=== PATIENT | female | born 1980 | race Caucasian/White ===

== ENCOUNTER 2022-06-04 07:06 | Emergency (ER) | payer BC, SELFPAY ==
[2022-06-04 07:13] VITALS: BP 140/65; PULSE 97; RESP 20; TEMP 35.9; O2SAT 98; BMI 43.1
--- NOTE | 2022-06-04 07:33 | ED_ITS ---
HPI - Back Pain/Injury General Chief Complaint: Back Injury/Pain Stated Complaint: back pain, muscle spasms Time Seen by Provider: 06/04/22 07:21 Source: patient Mode of arrival: ambulatory Limitations: no limitations History of Present Illness HPI Narrative: 42-year-old female presents to the emergency department with back pain that started this morning. Achy in nature, worse with movement. Located in the left flank area does radiate up to the left shoulder slightly. It is not accompanied by dyspnea, productive cough, hemoptysis. There is no radiculopathy or numbness or tingling. She has had upper respiratory infection cough for the past 2 weeks. Has been evaluated in urgent care twice. Six days ago, she was given a Z-Timothy and prednisone yesterday. Reports that this did not significantly improve her symptoms. She says the congestion is improving overall, suspect she may have had RSV. The and cough persists. She states that last night, the cough was more bothersome and felt a muscle pull in the area of pain now. She tried taking some ibuprofen at 6:00 a.m. this morning and it has not significantly improved her pain. She denies any prior history of DVT nor PE. She denies any hematuria or history of kidney stones. She was able to drive herself here and walk into the exam room without assistance. She is not running any true fevers. She denies a history of asthma. No prior history of back surgery, no other recent trauma or injury. Has not tried ice or heat. Past medical history notable for hypertension, prediabetes, depression. Reports an allergy to lisinopril causing abdominal pain. She does take for home medications, metformin, labetalol, levothyroxine and sertraline. Socially she is a nonsmoker with no pertinent travel. Tells me that she works for the [employer]. ROS is notable for the generalized, respiratory, musculoskeletal and HEENT symptoms as described above. Otherwise she denies times 12 systems. Related Data Home Medications Medication Instructions Recorded Confirmed labetalol 300 mg tablet 300 mg PO BID 05/25/22 06/04/22 levothyroxine 50 mcg tablet 50 mcg PO QDAY 05/25/22 06/04/22 metformin 500 mg tablet 500 mg PO BID 05/25/22 06/04/22 multivitamin (Multiple Vitamins 1 tab PO QAM 05/25/22 06/04/22 tablet) sertraline 100 mg tablet 100 mg PO QDAY 05/25/22 06/04/22 Previous Rx's Medication Instructions Recorded albuterol sulfate 90 mcg/actuation 2 puff inhalation Q3H PRN 06/04/22 aerosol inhaler shortness of breath or wheezing #8.5 grams cyclobenzaprine 5 mg tablet 5 - 10 mg PO TID PRN muscle spasm 06/04/22 #30 tabs prednisone 20 mg tablet 20 mg PO DAILY #2 tabs 06/04/22 Allergies Allergy/AdvReac Type Severity Reaction Status Date / Time lisinopril Allergy Severe Abdominal Verified 06/04/22 07:16 Pain PFSH PFSH Social History Smoking Status: Never smoker Do you use any of these nicotine containing products: None Second hand tobacco smoke exposure: No How often do you have a drink containing alcohol: monthly or less How often do you have six or more drinks on one occasion: Never AUDIT-C Alcohol total score: 1 Non-prescribed substance use: denies use service: No Exam Const: Vital Signs, click to edit/add: Vital Signs - 24 hr 06/04/22 07:13 Temperature 96.7 F L Pulse Rate [Pulse Oximeter] 97 Respiratory Rate 20 Blood Pressure [Ri ght Upper Arm] 140/65 H Pulse Oximetry 98 Oxygen Delivery Me thod Room Air Documenting provider has reviewed patient's vital signs: yes Common normals: no apparent distress General appearance: comfortable and well kempt Other: Appears mildly uncomfortable. HENMT: Common normals: normocephalic Head and scalp: normocephalic Mouth: oral and palatal mucosa normal Throat: posterior oropharynx normal Eye: Common normals: conjunctivae normal and no scleral icterus Conjunctiva: conjunctiva(e) normal Neck & C-Spine: Common normals: full ROM and no lymphadenopathy Resp: Common normals: normal respiratory effort and no use of accessory muscles Effort & inspection: able to speak in complete sentences Other: Very mild expiratory wheeze with no prolongation of expiration. Cardio: Common normals: regular rate, regular rhythm, S1 normal heart sound, S2 normal heart sound, no murmurs and peripheral pulses 2+ throughout Rate: regular rate Rhythm: regular rhythm Heart sounds: S1 normal and S2 normal Peripheral pulses: pulses 2+ throughout : Common normals: no CVA tenderness Bladder/kidney exam: no CVA tenderness Back & Pelvis: Common normals: no CVA tenderness and thoracic and lumbar spine normal to inspection Other: Mild left-sided paraspinal lower thoracic and lumbar tenderness. Worsens with extension and flexion. No point bony tenderness. Extremity: Common normals: normal to inspection, normal capillary refill and no pedal edema Neuro: Speech: speech normal Motor exam: no tremor noted and no movement abnormalities noted Psych: Common normals: mental status grossly normal and thought process normal Appearance: well kempt Activity/motor behavior: appropriate eye contact Thought process: normal thought process Skin: Common normals: no rashes or lesions noted General skin exam: no rashes or lesions noted Course Vital Signs Vital signs: Initial Vital Signs Temperature 96.7 F L 06/04/22 07:13 Temperature Source Temporal Artery Scan 06/04/22 07:13 Pulse Rate 97 06/04/22 07:13 Respiratory Rate 20 06/04/22 07:13 Blood Pressure 140/65 H 06/04/22 07:13 Blood Pressure Mean 90 06/04/22 07:13 Blood Pressure Position Supine 06/04/22 07:13 Pulse Oximetry 98 06/04/22 07:13 Oxygen Delivery Method 06/04/22 07:13 Vital Signs Temperature 96.7 F L 06/04/22 07:13 Pulse Rate 97 06/04/22 07:13 Respiratory Rate 20 06/04/22 07:13 Blood Pressure 140/65 H 06/04/22 07:13 Pulse Oximetry 98 06/04/22 07:13 Oxygen Delivery Method 06/04/22 07:13 Temperature 96.7 F L 06/04/22 07:13 Pulse Rate 97 06/04/22 07:13 Respiratory Rate 20 06/04/22 07:13 Blood Pressure 140/65 H 06/04/22 07:13 Pulse Oximetry 98 06/04/22 07:13 Oxygen Delivery Method 06/04/22 07:13 MDM - Back Pain/Injury MDM Narrative Medical decision making narrative: Differential diagnosis including pneumonia, kidney stone, pulmonary embolism, musculoskeletal strain. Discussed differential diagnosis with patient. She does not have other risk factors for pulmonary embolism. She does not have swelling in her legs. Offered D-dimer and follow-up CT scan, she declines this today which is reasonable as she is not experiencing any dyspnea, tachycardia or hypoxia. Discussed treatment of the musculoskeletal ailments. Recommended 10 mg of Flexeril, Tylenol, prednisone and re-evaluation and an hour. She was agreeable to this. Swab testing is not likely to be beneficial at this stage of illness either. Update 820: Patient noting some initial improvement already from the muscle relaxant, Tylenol. Discussed musculoskeletal findings. Discussed home treatmen t plan. She would like to be able to drive herself home, therefore do not recommend stronger treatment. Alarm symptoms reviewed as indications to seek repeat evaluation. I do recommend that she have access to albuterol since I do note a small amount of expiratory wheezing. This should help with the nighttime cough as well. All questions answered. Discharge Plan Discharge Clinical Impression: Strain of lumbar region Patient Disposition: Home, Self-Care Condition: Stable Instructions: Muscle Strain (DC) Additional Instructions: No work today, gently resume typical activities tomorrow. Continue ibuprofen as needed for discomfort. Continue Tylenol 1000 mg every 6 hours, next dose at 2:00 p.m.. I have given you a prescription for muscle relaxant, Flexeril. I would recommend that you take 5 mg twice daily during the day, 10 mg at bedtime. This may be more sedating, use with caution if you notice a side effect. I would also recommend that you do a couple more days of prednisone to help with the inflammation. As we discussed, I do hear some mild end-expiratory wheezing and I would like for you to have access to an albuterol inhaler. I think that this will improve your cough more than the other measures. You may use this up to every 2 hours for significant cough and chest tightness. As we discussed, shortness of breath and prolonged illness do put you at higher risk of pulmonary embolism which is a blood clot in the lungs. I am not appreciating enough signs of this to insist on testing. Through our discussion, you recommend watchful waiting and I agree. As we discussed, you would benefit from ice application for 20 minutes directly to the site of pain 3 times daily. I would recommend a hot shower at least once daily with some gentle stretching afterwards to loosen her muscles as well. If symptoms are not starting to improve in 48 hours, I would recommend you make a follow-up appointment in the clinic. Chances are this respiratory illness is RSV. This tends to last 3-4 weeks. I do not hear any signs of pneumonia. If you start running a fever over 100.4 and have significant worsening of respiratory symptoms, you should be re-evaluated. Activity Level: Activity as Tolerated Discharge Diet: Regular Prescriptions: New albuterol sulfate 90 mcg/actuation HFA aerosol inhaler 2 puff inhalation Q3H PRN (Reason: shortness of breath or wheezing) Qty: 8.5 1RF prednisone 20 mg tablet 20 mg PO DAILY Qty: 2 0RF Rx Instructions: Next dose 06/05/2022 cyclobenzaprine 5 mg tablet 5 - 10 mg PO TID PRN (Reason: muscle spasm) Qty: 30 0RF No Action labetalol 300 mg tablet 300 mg PO BID sertraline 100 mg tablet 100 mg PO QDAY levothyroxine 50 mcg tablet 50 mcg PO QDAY metformin 500 mg tablet 500 mg PO BID multivitamin [Multiple Vitamins] Tablet 1 tab PO QAM Follow Up/Referrals: Provider,Not a Local [Primary Care Provider] - Stand Alone Forms: [employer] ([employer])th Info Instructions
[2022-06-04] MEDS: predniSONE 10 MG TABLET 20 MG PO (07:51)
[2022-06-04] MEDS: CYCLOBENZAPRINE HCL 10 MG TABLET PO (07:51)
[2022-06-04] MEDS: ACETAMINOPHEN 500 MG TABLET 1000 MG PO (07:51)
[2022-06-04 08:45] VITALS: BP 145/85; PULSE 75; RESP 18; O2SAT 98
== END 2022-06-04 08:46 | disposition home or self-care (01) ==
PROVIDERS: Emergency Provider Family Medicine
DX: S39.012A Strain of muscle, fascia and tendon of lower back, initial encounter (principal)
CPT/HCPCS: 99282; 99283; 99284; A9270; J7512

== ENCOUNTER 2022-06-19 12:40 | Emergency (ER) | payer BC, SELFPAY ==
[2022-06-19 13:01] VITALS: BP 113/78; PULSE 85; RESP 20; TEMP 35.4; O2SAT 99; BMI 43.1
--- NOTE | 2022-06-19 13:33 | CRLHL7_ITS ---
For Patients: As a result of the Century Cures Act, medical imaging exams and procedure reports are released immediately into your electronic medical record. You may view this report before your referring provider. If you have questions, please contact your health care provider. INDICATION: Left flank pain. COMPARISON: There are no prior studies for comparison TECHNIQUE: CT examination of the abdomen and pelvis was performed without intravenous contrast. Thin section axial images were obtained from the lung bases through the pubic symphysis. Oral contrast was not administered. Please note that all CT scans at this facility use dose modulation, iterative reconstruction, and/or weight-based dosing when appropriate to reduce radiation dose to as low as reasonably achievable. FINDINGS: LUNG BASES: Left basilar atelectasis and small left pleural effusion.The heart size is normal at the lung bases. LIVER/BILIARY SYSTEM:The liver is normal in size and configuration given the lack of intravenous contrast. There is no visible focal mass and there is no intra- or extra hepatic biliary ductal dilatation.The gall bladder appears normal. ADRENALS: Normal non-contrast appearance KIDNEYS, URETERS and BLADDER:Intrarenal calculi bilaterally. However, there is no evidence current or recent obstructive uropathy on either side. No calculi within the course of either ureter or within the bladder. SPLEEN:Normal non-contrast appearance. PANCREAS: Normal non-contrast appearance. RETROPERITONEUM and MESENTERY: There is no mass, adenopathy or aortic aneurysm. GASTROINTESTINAL SYSTEM: There is no evidence of diverticulitis, colitis, mechanical obstruction, or appendicitis. The small bowel as visualized appears normal. PELVIS: Enlarged heterogeneous uterus likely due to myomatous involvement.. OSSEOUS STRUCTURES and ABDOMINAL WALL: There is an age-appropriate appearance of the osseous structures.No significant abdominal wall defect. OTHER: No free fluid or free air. IMPRESSION: 1. Left basilar atelectasis and small left pleural effusion. 2. Bilateral nephrolithiasis but no indication of acute or recent obstructive uropathy 3. 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 Please note that all CT scans at this facility use dose modulation, iterative reconstruction, and/or weight-based dosing when appropriate to reduce radiation dose to as low as reasonably achievable. Dictated by Pablo Santana MD @ 06/19/2022 3:01:39 PM (Electronically Signed)
--- NOTE | 2022-06-19 13:35 | ED.GENADULT ---
HPI - General Adult General Chief complaint: Back Injury/Pain Stated complaint: Lower back pain Time Seen by Provider: 06/19/22 13:25 Source: patient Mode of arrival: ambulatory Limitations: no limitations History of Present Illness HPI narrative: 42-year-old female coming in today complaining of left flank pain. Pain started about 2 weeks ago and has been coming and going. At 1st it was thought to be musculoskeletal in nature in her pain did improve with some Flexeril. However the pain came back yesterday and was significantly worse and has been in the past. She tried Flexeril last night and this morning it did not help too much. She does not feel nauseated but she feels diaphoretic when the pain comes. She states that she cannot find a comfortable position either lying, sitting or standing. She denies any fevers or chills. No nausea or vomiting. She denies any increased urinary frequency, urgency or dysuria. She denies constipation or diarrhea. No skin rashes that she is aware. Related Data Home Medications Medication Instructions Recorded Confirmed labetalol 300 mg tablet 300 mg PO BID 05/25/22 06/19/22 levothyroxine 50 mcg tablet 50 mcg PO QDAY 05/25/22 06/19/22 metformin 500 mg tablet 500 mg PO BID 05/25/22 06/19/22 multivitamin (Multiple Vitamins 1 tab PO QAM 05/25/22 06/19/22 tablet) sertraline 100 mg tablet 100 mg PO QDAY 05/25/22 06/19/22 Previous Rx's Medication Instructions Recorded albuterol sulfate 90 mcg/actuation 2 puff inhalation Q3H PRN 06/04/22 aerosol inhaler shortness of breath or wheezing #8.5 grams cyclobenzaprine 5 mg tablet 5 - 10 mg PO TID PRN muscle spasm 06/04/22 #30 tabs prednisone 20 mg tablet 20 mg PO DAILY #2 tabs 06/04/22 amoxicillin 500 mg tablet 1,000 mg PO BID 5 days #20 tabs 06/19/22 azithromycin 250 mg tablet See Taper PO DIRECTED #6 tabs 06/19/22 ketorolac 10 mg tablet 10 mg PO TID 5 days #15 tabs 06/19/22 Allergies Allergy/AdvReac Type Severity Reaction Status Date / Time lisinopril Allergy Severe Abdominal Verified 06/19/22 13:05 Pain Review of Systems Status of ROS: Reports: 10 or more systems reviewed and unremarkable except as noted in History and below [facility] Social History Smoking Status: Never smoker Do you use any of these nicotine containing products: None Second hand tobacco smoke exposure: No How often do you have a drink containing alcohol: monthly or less How often do you have six or more drinks on one occasion: Never AUDIT-C Alcohol total score: 1 Non-prescribed substance use: denies use service: No Exam Narrative: Exam Narrative: Overweight, well-developed patient who appears very uncomfortable. Alert and oriented. Answers questions appropriately. Mood and affect are appropriate. Thoughts are goal oriented and rational. No tangential or magical thinking noted. Patient speaks in full sentences without needing to catch her breath. HEENT: Normocephalic atraumatic. Pupils are equally round reactive to light. Extraocular muscles are intact. Conjunctivae are moist without any icterus noted. Moist mucous membranes. Cardiovascular: Heart is regular rate and rhythm S1 and S2 are present without any murmurs. Lungs: Clear to auscultation bilaterally no wheezes rhonchi or rales are appreciated. Patient does have pain with deep inspiration. Abdomen: Soft and nontender nondistended with normal bowel sounds. She does have left-sided CVA tenderness. Extremities: Bilateral lower extremities are without edema. Skin: Well perfused without any obvious rashes. Const: Vital Signs, click to edit/add: Vital Signs - 24 hr 06/19/22 13:01 06/19/22 14:50 06/19/22 16:30 Temperature 95.8 F L 96.7 F L Pulse Rate [Pulse Oximeter] 85 72 78 Respiratory Rate 20 16 Blood Pressure [Ri ght Upper Arm] 113/78 127/66 118/64 Pulse Oximetry 99 97 98 Oxygen Delivery Me thod Room Air Room Air Course Course Hospital Course: IV was established and labs were drawn. Patient received Toradol which did help her discomfort. Her white cell count was slightly elevated at 12.6. D-dimer was Elevated at 1.12, normal CRP. Chemistries were normal UA was not a good specimen. In COVID, influenza negative We did do an abdominal CT scan to look for any renal stones-CT scan was negative for obstructing renal stones however did show a left-sided pleural effusion. Given the elevated D-dimer and pleural effusion, we did proceed with a chest CT PE protocol which did not show a PE, or but again did show a small pleural effusion. Vital Signs Vital signs: Initial Vital Signs Temperature 95.8 F L 06/19/22 13:01 Temperature Source Temporal Artery Scan 06/19/22 13:01 Pulse Rate 85 06/19/22 13:01 Respiratory Rate 20 06/19/22 13:01 Blood Pressure 113/78 06/19/22 13:01 Blood Pressure Mean 89 06/19/22 13:01 Blood Pressure Position Sitting 06/19/22 13:01 Pulse Oximetry 99 06/19/22 13:01 Vital Signs Temperature 95.8 F L 06/19/22 13:01 Pulse Rate 85 06/19/22 13:01 Respiratory Rate 20 06/19/22 13:01 Blood Pressure 113/78 06/19/22 13:01 Pulse Oximetry 99 06/19/22 13:01 Temperature 96.7 F L 06/19/22 16:30 Pulse Rate 78 06/19/22 16:30 Respiratory Rate 16 06/19/22 16:30 Blood Pressure 118/64 06/19/22 16:30 Pulse Oximetry 98 06/19/22 16:30 Oxygen Delivery Method 06/19/22 16:30 Medical Decision Making MDM Narrative Medical decision making narrative: 42-year-old female with left-sided pain in the lower chest/flank area mild and consistent with pleural effusion found on the left on her CT scan. Unclear etiology of this. However, given that the pain is been getting worse over the last 2 weeks instead of better, elevated white cell count and acute phase reactant (D-dimer), I am concerned about the possibility of pneumonia in this area. We will treat the patient with azithromycin and amoxicillin. Follow-up with primary care next week. Return to the ER if symptoms are worsening. Lab Data Labs: Lab Results 06/19/22 06/19/22 06/19/22 Range/Units 13:45 13:45 13:47 WBC 12.62 H (4.50-11.00) K/uL RBC 4.64 (4.00-5.20) m/uL Hgb 13.7 (12.0-16.0) gm/dL Hct 41.5 (33.0-51.0) % MCV 89 (80-100) fL MCH 30 (26-34) pg MCHC 33 (32-36) gm/dL RDW Coeff of Ronaldo 13.0 (11.5-15.5) % Plt Count 381 (140-440) K/uL Neut % (Auto) 68.2 (42.0-72.0) % Lymph % (Auto) 21.7 (20-44) % [place] % (Auto) 5.6 (0.0-11.0) % Eos % (Auto) 4.0 (0.0-7.0) % Baso % (Auto) 0.3 (0.0-3.0) % Neut # (Auto) 8.60 H (1.7-7.0) K/uL Lymph # (Auto) 2.70 (0.90-2.90) K/uL [place] # (Auto) 0.70 (0.00-0.90) K/UL Eos # (Auto) 0.50 (0.00-0.50) K/uL Baso # (Auto) 0.00 (0.00-0.30) K/uL D-Dimer Quant (PE/DVT) 1.12 H (0.00-0.50) ug/ml Sodium (135-149) mmol/L Potassium (3.6-5.1) mmol/L Chloride (96-114) mmol/L Carbon Dioxide (20-32) mmol/L BUN (5-24) mg/dL Creatinine (0.5-1.5) mg/dL Estimated Creat Clear Estimated GFR ml/min Glucose (60-115) mg/dL Lactate (0.5-1.9) mmol/L Calcium (8.4-10.6) mg/dL C-Reactive Protein (0.5-1.0) mg/dL Lipase (23-300) U/L Urine Color Yellow (Yellow) Urine Appearance Cloudy A (Clear) Urine pH 6.0 (5.0-8.5) Ur Specific [place] 1.015 (1.000-1.030) Urine Protein Negative (Negative) Urine Glucose (UA) Negative (Negative) Urine Ketones Negative (Negative) Urine Blood Trace-intact A (Negative) Urine Nitrite Negative (Negative) Urine Bilirubin Negative (Negative) Urine Urobilinogen 0.2 (0.2-1.0) Ur Leukocyte Esterase Negative (Negative) Urine RBC 0-2 (0-2) Urine WBC 0-2 (0-5) Ur Squamous Epith Cells Moderate A (None-Few) Urine Bacteria Moderate A (None) 06/19/22 06/19/22 06/19/22 Range/Units 13:47 13:47 13:47 WBC (4.50-11.00) K/uL RBC (4.00-5.20) m/uL Hgb (12.0-16.0) gm/dL Hct (33.0-51.0) % MCV (80-100) fL MCH (26-34) pg MCHC (32-36) gm/dL RDW Coeff of Ronaldo (11.5-15.5) % Plt Count (140-440) K/uL Neut % (Auto) (42.0-72.0) % Lymph % (Auto) (20-44) % [place] % (Auto) (0.0-11.0) % Eos % (Auto) (0.0-7.0) % Baso % (Auto) (0.0-3.0) % Neut # (Auto) (1.7-7.0) K/uL Lymph # (Auto) (0.90-2.90) K/uL [place] # (Auto) (0.00-0.90) K/UL Eos # (Auto) (0.00-0.50) K/uL Baso # (Auto) (0.00-0.30) K/uL D-Dimer Quant (PE/DVT) (0.00-0.50) ug/ml Sodium 140 (135-149) mmol/L Potassium 4.1 (3.6-5.1) mmol/L Chloride 107 (96-114) mmol/L Carbon Dioxide 25 (20-32) mmol/L BUN 12 (5-24) mg/dL Creatinine 0.8 (0.5-1.5) mg/dL Estimated Creat Clear 89.08 Estimated GFR 94 ml/min Glucose 136 H (60-115) mg/dL Lactate 1.1 (0.5-1.9) mmol/L Calcium 9.3 (8.4-10.6) mg/dL C-Reactive Protein < 0.5 L (0.5-1.0) mg/dL Lipase 80 (23-300) U/L Urine Color (Yellow) Urine Appearance (Clear) Urine pH (5.0-8.5) Ur Specific [place] (1.000-1.030) Urine Protein (Negative) Urine Glucose (UA) (Negative) Urine Ketones (Negative) Urine Blood (Negative) Urine Nitrite (Negative) Urine Bilirubin (Negative) Urine Urobilinogen (0.2-1.0) Ur Leukocyte Esterase (Negative) Urine RBC (0-2) Urine WBC (0-5) Ur Squamous Epith Cells (None-Few) Urine Bacteria (None) Imaging Data CT scan - chest: Attestation: I have reviewed the pertinent imaging results. Radiologist's impression: CT examination of the chest was performed with the uneventful intravenous administration of 95 cc of Isovue 370 while thin axial sections were obtained from above the apices of the lungs to the lung bases. Please note that all CT scans at this facility use dose modulation, iterative reconstruction, and/or weight-based dosing when appropriate to reduce radiation dose to as low as reasonably achievable. FINDINGS: : HEART and MEDIASTINUM: The heart size is normal. There is no mediastinal or hilar adenopathy or mass. There is no pericardial effusion. PULMONARY ARTERIAL CIRCULATION: There is no visible intraluminal filling defect to suggest pulmonary embolus. LUNGS: Posterior basal left lower lobe airspace process probably atelectasis. Trace atelectasis at the right base PLEURAL SPACES: Small left effusion VISUALIZED UPPER ABDOMEN: The limited visualized upper abdominal structures appear normal. OSSEOUS STRUCTURES: Age-appropriate appearance. No acute fracture or destructive process. TUBES and LINES: None. IMPRESSION: 1. There is no finding of acute pulmonary embolus. 2. Mild posterior basal left lower lobe airspace process probably atelectasis. Small left effusion. Minimal right basilar atelectasis. CT scan - abdomen: Attestation: I have reviewed the pertinent imaging results. Radiologist's impression: CT examination of the abdomen and pelvis was performed without intravenous contrast. Thin section axial images were obtained from the lung bases through the pubic symphysis. Oral contrast was not administered. Please note that all CT scans at this facility use dose modulation, iterative reconstruction, and/or weight-based dosing when appropriate to reduce radiation dose to as low as reasonably achievable. FINDINGS: LUNG BASES: Left basilar atelectasis and small left pleural effusion.The heart size is normal at the lung bases. LIVER/BILIARY SYSTEM:The liver is normal in size and configuration given the lack of intravenous contrast. There is no visible focal mass and there is no intra- or extra hepatic biliary ductal dilatation.The gall bladder appears normal. ADRENALS: Normal non-contrast appearance KIDNEYS, URETERS and BLADDER:Intrarenal calculi bilaterally. However, there is no evidence current or recent obstructive uropathy on either side. No calculi within the course of either ureter or within the bladder. SPLEEN:Normal non-contrast appearance. PANCREAS: Normal non-contrast appearance. RETROPERITONEUM and MESENTERY: There is no mass, adenopathy or aortic aneurysm. GASTROINTESTINAL SYSTEM: There is no evidence of diverticulitis, colitis, mechanical obstruction, or appendicitis. The small bowel as visualized appears normal. PELVIS: Enlarged heterogeneous uterus likely due to myomatous involvement.. OSSEOUS STRUCTURES and ABDOMINAL WALL: There is an age-appropriate appearance of the osseous structures.No significant abdominal wall defect. OTHER: No free fluid or free air. IMPRESSION: 1. Left basilar atelectasis and small left pleural effusion. 2. Bilateral nephrolithiasis but no indication of acute or recent obstructive uropathy 3. 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 Discharge Plan Discharge Clinical Impression: Pneumonia Patient Disposition: Home, Self-Care Condition: Stable Additional Instructions: Take all antibiotics as prescribed. Okay to use Tylenol or ibuprofen for pain. I will send you home with some Toradol as well which is the medication you took while your in the ER today. Follow-up with your primary care provider next week. Return to the ER if you feel like things are getting worse instead of better. Prescriptions: New azithromycin 250 mg tablet See Taper PO DIRECTED Qty: 6 0RF Taper: Z-SUSANNE 500 mg Q24H for 1 Day and 0 Hour 250 mg Q24H for 4 Days and 0 Hour Rx Instructions: For 250 mg dose pack: take 500 mg today (day 1), then 250 mg for 4 days (days 2-5) amoxicillin 500 mg tablet 1,000 mg PO BID 5 Days Qty: 20 0RF ketorolac 10 mg tablet 10 mg PO TID 5 Days Qty: 15 0RF No Action labetalol 300 mg tablet 300 mg PO BID sertraline 100 mg tablet 100 mg PO QDAY levothyroxine 50 mcg tablet 50 mcg PO QDAY metformin 500 mg tablet 500 mg PO BID multivitamin [Multiple Vitamins] Tablet 1 tab PO QAM albuterol sulfate 90 mcg/actuation HFA aerosol inhaler 2 puff inhalation Q3H PRN (Reason: shortness of breath or wheezing) Qty: 8.5 1RF prednisone 20 mg tablet 20 mg PO DAILY Qty: 2 0RF Rx Instructions: Next dose 06/05/2022 cyclobenzaprine 5 mg tablet 5 - 10 mg PO TID PRN (Reason: muscle spasm) Qty: 30 0RF Follow Up/Referrals: Provider,Not a Local [Primary Care Provider] - Stand Alone Forms: MyHealth Info Instructions
[2022-06-19 13:58] LABS: Lactate* 1.1 mmol/L (0.5-1.9)
[2022-06-19 13:59] LABS: Basophils Percent Auto 0.3 % (0.0-3.0); Hematocrit 41.5 % (33.0-51.0); Hemoglobin* 13.7 gm/dL (12.0-16.0); Immature Granulocytes Pct Auto 0.2 %; Lymphocytes Percent Auto 21.7 % (20-44); Mean Corpuscular HGB Conc 33 gm/dL (32-36); Mean Corpuscular Hemoglobin 30 pg (26-34); Mean Corpuscular Volume 89 fL (80-100); Monocytes Percent Auto 5.6 % (0.0-11.0); Neutrophils Percent Auto 68.2 % (42.0-72.0); Platelet Count* 381 K/uL (140-440); Red Blood Count 4.64 m/uL (4.00-5.20); White Blood Count* 12.62 K/uL (4.50-11.00)
[2022-06-19 14:01] LABS: Slide Review Reflex No
[2022-06-19 14:08] LABS: Appearance Urine Cloudy (Clear); Bilirubin Urine Negative (Negative); Blood Urine Trace-intact (Negative); Color Urine Yellow (Yellow); Glucose Urine Negative (Negative); Ketones Urine Negative (Negative); Specific Gravity Urine 1.015 (1.000-1.030)
[2022-06-19 14:09] LABS: Bacteria Urine Moderate; Leukocyte Esterase Urine Negative (Negative); Nitrite Urine Negative (Negative); Protein Urine Negative (Negative); RBC Urine 0-2 (0-2); Squamous Epithelial Cell Urine Moderate (None-Few); Urobilinogen Urine 0.2 (0.2-1.0); WBC Urine 0-2 (0-5)
[2022-06-19 14:15] LABS: Chloride* 107 mmol/L (96-114); Potassium* 4.1 mmol/L (3.6-5.1); Sodium* 140 mmol/L (135-149)
[2022-06-19 14:17] LABS: Creatinine* 0.8 mg/dL (0.5-1.5); Est. Creatinine Clearance* 89.08; Estimated Glomerular Filt Rate 94 ml/min
[2022-06-19 14:18] LABS: Blood Urea Nitrogen* 12 mg/dL (5-24); Calcium* 9.3 mg/dL (8.4-10.6); Carbon Dioxide* 25 mmol/L (20-32); Glucose* 136 mg/dL (60-115); Lipase* 80 U/L (23-300)
[2022-06-19 14:28] LABS: C Reactive Protein* < 0.5 mg/dL (0.5-1.0)
[2022-06-19 14:50] VITALS: BP 127/66; PULSE 72; O2SAT 97
--- NOTE | 2022-06-19 15:26 | CRLHL7_ITS ---
For Patients: As a result of the Century Cures Act, medical imaging exams and procedure reports are released immediately into your electronic medical record. You may view this report before your referring provider. If you have questions, please contact your health care provider. INDICATION: Left-sided pain COMPARISON: None TECHNIQUE: : CT examination of the chest was performed with the uneventful intravenous administration of 95 cc of Isovue 370 while thin axial sections were obtained from above the apices of the lungs to the lung bases. Please note that all CT scans at this facility use dose modulation, iterative reconstruction, and/or weight-based dosing when appropriate to reduce radiation dose to as low as reasonably achievable. FINDINGS: : HEART and MEDIASTINUM: The heart size is normal. There is no mediastinal or hilar adenopathy or mass. There is no pericardial effusion. PULMONARY ARTERIAL CIRCULATION: There is no visible intraluminal filling defect to suggest pulmonary embolus. LUNGS: Posterior basal left lower lobe airspace process probably atelectasis. Trace atelectasis at the right base PLEURAL SPACES: Small left effusion VISUALIZED UPPER ABDOMEN: The limited visualized upper abdominal structures appear normal. OSSEOUS STRUCTURES: Age-appropriate appearance. No acute fracture or destructive process. TUBES and LINES: None. IMPRESSION: 1. There is no finding of acute pulmonary embolus. 2. Mild posterior basal left lower lobe airspace process probably atelectasis. Small left effusion. Minimal right basilar atelectasis. Please note that all CT scans at this facility use dose modulation, iterative reconstruction, and/or weight-based dosing when appropriate to reduce radiation dose to as low as reasonably achievable. Dictated by Pablo Santana MD @ 06/19/2022 4:49:48 PM (Electronically Signed)
[2022-06-19 16:00] LABS: D Dimer Quantitative* 1.12 ug/ml (0.00-0.50)
[2022-06-19 16:30] VITALS: BP 118/64; PULSE 78; RESP 16; TEMP 35.9; O2SAT 98
== END 2022-06-19 17:32 | disposition home or self-care (01) ==
PROVIDERS: Emergency Provider Family Medicine
DX: J18.9 Pneumonia, unspecified organism (principal)
CPT/HCPCS: 36415; 71260; 74176; 80048; 81001; 83605; 83690; 85025; 85379; 86140; 87086; 99284; 99285; Q9967

== ENCOUNTER 2022-07-02 08:10 | Outpatient (CLI) | payer BC, SELFPAY ==
[2022-07-02 10:56] LABS: Vitamin D 25 Hydroxy* 29 ng/mL (30-80)
[2022-07-02 13:07] LABS: Albumin* 4.1 g/dL (3.3-5.0); Blood Urea Nitrogen* 15 mg/dL (5-24); Calcium* 9.1 mg/dL (8.4-10.6); Carbon Dioxide* 26 mmol/L (20-32); Chloride* 106 mmol/L (96-114); Creatinine* 0.9 mg/dL (0.5-1.5); Estimated Glomerular Filt Rate 82 ml/min; Glucose* 114 mg/dL (60-115); Potassium* 4.4 mmol/L (3.6-5.1); Sodium* 139 mmol/L (135-149); Total Protein* 6.5 g/dL (6.0-8.3)
[2022-07-02 13:08] LABS: Alanine Aminotransferase* 17 U/L (4-35); Alkaline Phosphatase* 66 U/L (40-150); Aspartate Amino Transferase* 20 U/L (12-35); Bilirubin Total* 0.3 mg/dL (0.1-1.5); Cholesterol* 229 mg/dL (90-199); HDL Cholesterol* 61 mg/dL (>=50); LDL Cholesterol Calculated 150 mg/dL (<100); Triglycerides* 89 mg/dL (40-149); Vitamin B12* 310 pg/mL (243-894)
== END 2022-07-02 08:11 | disposition home or self-care (01) ==
LOC: NFLDREF 08:10
PROVIDERS: PCP Family Medicine; Visit Provider Family Medicine
DX: Z01.419 Encounter for gynecological examination (general) (routine) without abnormal findings (principal); E03.9 Hypothyroidism, unspecified; I10 Essential (primary) hypertension; R53.83 Other fatigue; R73.03 Prediabetes
CPT/HCPCS: 80053; 80061; 82306; 82607; 84443

== ENCOUNTER 2022-09-14 13:09 | Outpatient (CLI) | payer BC, SELFPAY ==
--- NOTE | 2022-09-14 13:20 | CRLHL7_ITS ---
For Patients: As a result of the Century Cures Act, medical imaging exams and procedure reports are released immediately into your electronic medical record. You may view this report before your referring provider. If you have questions, please contact your health care provider. BILATERAL SCREENING MAMMOGRAM WITH COMPUTER-AIDED DETECTION TECHNIQUE: CC and MLO views were obtained. These mammographic images have been obtained using full-field digital technique. These mammographic images were interpreted with the benefit of computer-aided detection. COMPARISON FILM: [place] 06/12/21, 05/03/20. FINDINGS: The breasts are almost entirely fatty. IMPRESSION: There is no radiographic evidence for malignancy. ASSESSMENT: BI-RADS Category 2: Benign RECOMMENDATION: Routine screening mammogram in 1 year. A lay language report of this examination will be provided to the patient. KAREEM JIMENEZ M.D. Diagnostic Radiologist [email or web address] Transcribed: 09/17/2022, 2:[address]/Dictated by: Kareem Jimenez MD @ 09/17/2022 9:04:00 AM (Electronically Signed)
== END 2022-09-14 13:10 | disposition home or self-care (01) ==
LOC: MAMMO 13:09
PROVIDERS: PCP Family Medicine; Visit Provider Family Medicine
DX: Z12.31 Encounter for screening mammogram for malignant neoplasm of breast (principal)
CPT/HCPCS: 77063; 77067

== ENCOUNTER 2022-12-11 07:40 | Outpatient (CLI) | payer OTHER, SELFPAY | END 2022-12-11 07:41 | disposition home or self-care (01) | LOC: NFLDREF 12-13 18:04 | PROVIDERS: PCP Family Medicine; Referring Provider Family Medicine; Visit Provider Family Medicine | DX: E78.5 Hyperlipidemia, unspecified (principal); R73.03 Prediabetes; R79.89 Other specified abnormal findings of blood chemistry; I10 Essential (primary) hypertension; R53.83 Other fatigue; E88.81 Metabolic syndrome and other insulin resistance | CPT/HCPCS: 80061; 82306 ==

== ENCOUNTER 2023-06-15 09:27 | Outpatient (CLI) | payer OTHER, SELFPAY | END 2023-06-15 09:28 | disposition home or self-care (01) | LOC: NFLDREF 09:28 | PROVIDERS: PCP Family Medicine; Visit Provider Family Medicine | DX: N92.6 Irregular menstruation, unspecified (principal) | CPT/HCPCS: 84443 ==

== ENCOUNTER 2023-06-29 14:50 | Outpatient (CLI) | payer OTHER, SELFPAY ==
--- NOTE | 2023-06-29 15:00 | CRLHL7_ITS ---
For Patients: As a result of the Century Cures Act, medical imaging exams and procedure reports are released immediately into your electronic medical record. You may view this report before your referring provider. If you have questions, please contact your health care provider. INDICATION: Irregular menstruation COMPARISON: CT 06/19/2022 TECHNIQUE: 2D webb scale and color Doppler images were acquired of the pelvis using a transabdominal and transvaginal approach. FINDINGS: The uterus is enlarged with a lobular contour. Uterus measures 14.1 cm in length by 6.0 cm in AP diameter by 8.3 cm in transverse dimension. A large right-sided partially exophytic fibroid is present, as before, measuring 7.1 x 6.7 x 7.2 cm. The endometrial lining appears measures 17 mm in composite thickness. The right ovary measures 3.8 x 2.0 x 2.5 cm in size and the left ovary measures 4.5 x 2.0 x 3.0 cm. The ovaries demonstrate normal arterial and venous blood flow on color Doppler analysis. There are no suspicious fluid collections within the cul-de-sac. IMPRESSION: Large partially exophytic right-sided fibroid measures 7.1 x 6.7 x 7.2 cm, similar to the prior CT scan. The endometrium is heterogeneously thickened and measures up to 17 millimeters. Dictated by Kareem Man MD @ 06/30/2023 10:54:29 AM (Electronically Signed)
== END 2023-06-29 14:51 | disposition home or self-care (01) ==
LOC: US 14:50
PROVIDERS: PCP Family Medicine; Visit Provider Family Medicine
DX: N92.6 Irregular menstruation, unspecified (principal); D25.9 Leiomyoma of uterus, unspecified; R93.89 Abnormal findings on diagnostic imaging of other specified body structures; N92.0 Excessive and frequent menstruation with regular cycle
CPT/HCPCS: 76830; 76856

== ENCOUNTER 2023-08-02 07:59 | Outpatient (CLI) | payer BC, SELFPAY ==
--- OUTSIDE RECORDS SUMMARY | 2023-08-03 19:06 | XMS_ITS | Clinical Summary ---
Author Name Unknown Organization [facility] Address [address] [place] [address] Care Team Providers Care Political Science Chair Name Role Phone Elsewhere, Pcp Primary Care Provider Unavailabl e Source Comments Patient records contain information from all sites at [facility]. For routine questions regarding patient records, call [phone] during business hours, M-F 8:00 AM - 5:00 PM Central Time. Record requests for emergency care only can be directed to [phone] at any time.[facility] Allergies Active Allergy Reactions Criticality Noted Date Comments Lisinopril GI intolerance High 06/03/2015 Other reaction(s): GI Upset Medications Medication Sig Dispensed Refills Start Date End Date Status cholecalciferol (for_VITAMIN D3) 2,000 Unit capsule Take by mouth daily. 0 09/30/2013 Active DME CPAPIndications:B reathing Related Sleep Disorder DME Order 1 Device 0 12/25/2019 Active labetaloL (NORMODYNE) 300 mg tablet Take 1 tablet (300 mg total) by mouth 2 (two) times a day. 180 tablet 3 07/31/2021 Active multivitamin tablet Chew 1 tablet daily. 0 Active minoxidiL (ROGAINE) 2 % external solution Apply topically 2 (two) times a day. 0 Active metFORMIN (GLUCOPHAGE) 500 mg tabletIndications :Impaired Fasting Glucose Take 1 tablet (500 mg total) by mouth 2 (two) times a day with meals. 360 tablet 3 08/25/2021 Active Additional Information Patient taking differently: 1,000 mgoral 2 times daily with meals,Has been taking 2 tablets twice a day, Reported on 07/01/2023 sertraline (ZOLOFT) 100 mg tablet TAKE 1 TABLET BY MOUTH DAILY 90 tablet 3 01/26/2022 Active levothyroxine (SYNTHROID, LEVOTHROID) 50 mcg tablet Take 1 tablet (50 mcg total) by mouth every morning before breakfast. 90 tablet 3 04/17/2022 Active cyclobenzaprine (FLEXERIL) 5 mg tablet Take 5-10 mg by mouth 3 (three) times a day as needed. Not taking often 0 06/04/2022 Active minoxidiL (LONITEN) 2.5 mg tablet Take 0.5 tablets (1.25 mg total) by mouth daily. 30 tablet 3 04/30/2023 Active minoxidiL (LONITEN) 2.5 mg tablet Take 1 tablet (2.5 mg total) by mouth daily. 90 tablet 3 07/02/2023 07/01/2024 Active Active Problems Problem Noted Date Diagnosed Date Hypothyroidism 08/25/2021 Metabolic Syndrome 08/25/2021 Primary Focal Hyperhidrosis Face 08/28/2019 Overview: trial oxybutynin if desired Obstructive Sleep Apnea Adult 08/30/2017 Overview: - Respiratory-effort related sleep arousal. - PAP at 7 cm, using nasal cushions, recommended. - supplies at [employer] Body Mass Index 40.0 To 44.9 Adult 09/30/2016 Overview: Body Mass Index (BMI) 40.0-44.9 Adult Rule resolved problem due to BMI 45-49 posted on 08/03 at 15:41 HOST AND HOSTESS. 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 Alopecia (Primary Dx) Discharge Disposition: Home or Self Care 07/01/2023 7:30 AM HOST AND HOSTESS Clinical Communication Virtual Review in [place], [place] [address] [place] [address] Pre-visit Intake from Last 3 Months Immunizations Name Administration Dates Next Due HepB Adult 11/26/2006,03/22/2006,10/15/2003 Influenza TIV (IM) 06/05/2011,05/16/2010 Influenza, Unspecified 05/18/2016,06/05/2011,06/2010 SARS-COV-2 (COVID-19) - PFIZ ER (12 years or older) 06/06/2021,11/05/2020,10/10/2020 SARS-COV-2 (COVID-19) - PFIZ ER BIVALENT TS(12 YEARS OR OLDER) 04/17/2022 Td (Adult), adsorbed 10/15/2003 Tdap 04/11/2013,06/05/2011 influenza vaccine quad (FLUZONE/FLUARIX) (6 months and older)(PF) 06/06/2021,05/10/2020,08/28/2019,2017 Family History Medical History Relation Name Comments Arthritis Brother 1 Depression Brother 1 Hypertension Brother 1 Arthritis Brother 2 Abraham Josefina Depression Brother 2 Abraham Rocha Hypertension Brother 2 Abraham Rocha Arthritis Father Dawood Rocha Depression Father Dawood Rocha Hepatitis Father Dawood Rocha Hyperlipidemia Father Dawood Rocha Hypertension Father Dawood Rocha Skin disorder Father Dawood Rocha Stroke Father Dawood Rocha Coronary artery disease Grandfather 1 Maternal Diabetes Grandfather 1 Maternal Lung cancer Grandfather 2 Paternal Skin cancer Grandfather 2 Paternal Prostate cancer Grandfather 3 Diabetes Grandmother Maternal Coronary artery disease Maternal Grandfather Robinson Rayshawn hmidt Dementia Maternal Grandfather Robinson Merlyn Early stage Other cancer Maternal Grandfather Robinson Merlyn Esoph egial cancer Dementia Maternal Grandmother Camila Merlyn Early stage Diabetes Maternal Grandmother Camila Merlyn Sleep apnea Maternal Grandmother Camila Zuleta Arthritis Mother Tanisha Rocha Depression Mother Tanisha Rocha Diabetes Mother Tanisha Rocha She no longer h as it after having weight loss surgery Hyperlipidemia Mother Tanisha Rocha Hypertension Mother Tanisha Rocha Sleep apnea Mother Tanisha Rocha Stroke Mother Tanisha Rocha Skin cancer Paternal Grandfather Anam Rocha Depression Sister 1 Suicidal ideation Sister 1 Depression Sister 2 Vera Sharif Relation Name Status Comments Brother 1 Brother 2 Abraham Rocha Father Dawood Rocha Grandfather 1 Maternal Grandfather 2 Paternal Grandfather 3 Grandmother Maternal Maternal Grandfather Robinson Zuleta Maternal Grandmother Camila Zuleta Mother Tanisha Rocha Paternal Grandfather Anam Rocha Sister 1 Sister 2 Vera Sharif Social History Tobacco Use Types Packs/Day Years Used Date Smoking Tobacco: Never Smokeless Tobacco: Never Chew Tobacco Cessation:Counseling Given: Not Answered Alcohol Use Standard Drinks/Week Comments Yes 3 (1 standard drink = 0.6 oz pur e alcohol) 2-3 times weekly: 1 glass wine [facility] e-Zassiities Answer Date Recorded In the past 12 months has e [employer], gas, oil, or water [employer] threatened to shut off services in your home? No 07/01/2023 Humiliation, Afraid, Rape, and Kick questionnair e Answer Date Recorded Within the last year, have y ou been afraid of your partner or ex-partner? No 08/25/2019 Within the last year, have y ou been humiliated or emotionally abused in other ways by your partner or ex-partner? No Within the last year, have y ou been kicked, hit, slapped, or otherwise physically hurt by your partner or ex-partner? No 08/25/2019 Within the last year, have y ou been raped or forced to have any kind of sexual activity by your partner or ex-partner? No 08/25/2019 Social Connection and Isolation Panel [NHANES] A nswer Date Recorded Frequency of Communication with Friends and Fami ly Not on file 08/29/2020 How often do you get togethe r with friends or relatives? Patient declined 08/29/2020 Attends Taoist Services Not on file 08/29 Active Member of Clubs or Organizations Not on f ile 08/29/2020 How often do you attend meet ings of the clubs or organizations you belong to? Never 08/29/2020 Marital Status Not on file 08/29/2020 AUDIT-C Answer Date Recorded Q1: How often do you have a drink containing alc ohol? 2-3 times a week 08/25/2019 Q2: How many drinks containi ng alcohol do you have on a typical day when you are drinking? 1 or 2 08/25/2019 Q3: How often do you have si x or more drinks on one occasion? Never 08/25/2019 Overall Financial Resource Strain (CARDIA) Answe r Date Recorded How hard is it for you to pa y for the very basics like food, housing, medical care, and heating? Not hard at all 08/25/2019 PHQ-2 Answer Date Recorded PHQ-2 Score 1 04/17/2022 [facility] - Occupational Stress Questionnaire Answer Date Recorded Do you feel stress - tense, restless, nervous, or anxious, or unable to sleep at night because your mind is troubled all the time - these days? To some extent 08/29/2020 Exercise Vital Sign Answer Date Recorde d On average, how many days pe r week do you engage in moderate to strenuous exercise (like a brisk walk)? 3 days 07/01/2023 On average, how many minutes do you engage in exercise at this level? 30 min 07/01/2023 Hunger Vital Sign Answer Date Recorded Within the past 12 months, y ou worried that your food would run out before you got the money to buy more. Never true 07/01/20 23 Within the past 12 months, t he food you bought just didn't last and you didn't have money to get more. Never true 07/01/2023 PRAPARE - Transportation Answer Date Re corded In the past 12 months, has l ack of transportation kept you from medical appointments or from getting medications? No 06/05 In the past 12 months, has l ack of transportation kept you from meetings, work, or from getting things needed for daily living? No 07/01/2023 Depression Answer Date Recor ded PHQ-9 Total Score (max 27) 3 04/17 Nutrition Answer Date Recorded Nutrition: EVOO Fat Source Yes 07/01 On average, how many serving s of fruits and vegetables do you eat per day (serving size is equal to 1 cup or approximately the size of a tennis ball)? 3-5 07/01/2023 Dental Answer Date Recorded Dental: Regular Dentist Yes 07/02/20 Employment Answer Date Recorded Employment status Employed and actively working without restrictions 07/01/2023 Housing Stability Answer Date Recorded What is your living situation today? I have a [facility] place to live 07/01/2023 Education Answer Date Recorded What is the highest level of school you have completed or the highest degree you have received? Master's degree (e.g., MA, MS, [employer], MEd, CADMIUM LIQUOR MAKER, JENNIFER) 08/25/2019 Sex and Gender Information Value Date Recorded Sex Assigned at Female 11/05/2021 3:27 PM CDT Gender Identity Female 06/02/2017 8:15 AM HOST AND HOSTESS Sexual Orientation Straight 06/02/2017 8: 15 AM HOST AND HOSTESS Last Filed Vital Signs Vital Sign Reading Time Taken Comments Blood Pressure 117/84 04/17/2022 8:13 AM CDT Pulse 84 04/17/2022 8:13 AM CDT Temperature 37 ??C (98.6 ??F) 04/17/2022 8:13 AM CDT Respiratory Rate 15 11/29/2018 11:17 PM CDT Oxygen Saturation 99% 05/10/2020 8:24 AM HOST AND HOSTESS Inhaled Oxygen Concentration - - Weight 126 kg (277 lb 9 oz) 04/17/2022 8:13 AM C DT Height 169.9 cm (5' 6.89) 08/25/2021 10:[address] Body Mass Index 43.62 08/25/2021 10:04 AM HOST AND HOSTESS Plan of Treatment Health Maintenance Due Date Last Done Comments HIV Screening 1980 Hepatitis C Screening 1980 Mammogram 06/12/2022 06/12/2021, 05/03/2020 Depression Monitoring (PHQ-9) 08/18/2022 04/17/2022 Fasting Glucose for Diabetes Screening 08/25/2022 08/25/2021, 09/02/2020, 08/28/2019, Additional history exists Cervical Cancer Screening 03/14/2023 03/14/2018, 04/2018 DTaP,Tdap,and Td Vaccines (3 - Td or Tdap) 04/11/2023 04/11/2013, 06/05/2011, 10/15/2003 Office Visit for Blood Pressure Check / Re-check 04/17/2023 04/17/2022, 08/25/2021 Lipid (Cholesterol) Screening 08/25/2026 08/25/2021, 09/02/2020, 03/16/2018, Additional history exists Hepatitis B Vaccines Completed 11/26/2006, 03/22/2006, 10/15/2003 COVID-19 Vaccine Completed 03/30/2023, , 04/17/2022, Additional history exists Influenza Vaccine Completed 03/30/2023, , 06/06/2021, Additional history exists HPV Vaccines Aged Out No longer eligi ble based on patient's age to complete this topic Pneumococcal vaccine (0-64 years) Aged Out No longer eligible based on patient's age to complete this topic Care Teams Political Science Chair Relationship Specialty Start Date End Date Elsewhere, Pcp PCP - General Internal Medicine 07/13/22
--- OUTSIDE RECORDS SUMMARY | 2023-08-03 19:06 | XMS_ITS | Referral Summary ---
Author Name Unknown Organization [facility] Address [address] [place] [address] Care Team Providers Care Debit Agent Name Role Phone Elsewhere, Pcp Primary Care Provider Unavailabl e Source Comments Patient records contain information from all sites at [facility]. For routine questions regarding patient records, call [phone] during business hours, M-F 8:00 AM - 5:00 PM Central Time. Record requests for emergency care only can be directed to [phone] at any time.[facility] Encounters Date Type Department Care Team Description 07/02/2023 11:00 AM CUTTING TABLE OPERATOR Office Visit Department of Dermatology in [address] [phone] Adam Ortiz M.D. Alopecia (Primary Dx) Discharge Disposition: Home or Self Care 07/01/2023 7:30 AM CUTTING TABLE OPERATOR Clinical Communication Virtual Review in [address] [address] Pre-visit Intake from Last 3 Months Allergies Active Allergy Reactions Criticality Noted Date [...] using nasal cushions, recommended. - supplies at [employer] Body Mass Index 40.0 To 44.9 Adult 09/30/2016 Overview: Body Mass Index (BMI) 40.0-44.9 Adult Rule resolved problem due to BMI 45-49 posted on 08/03 at 15:41 CUTTING TABLE OPERATOR. 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 03/12/2016 Depression Major One Episode Mild 03/06/2016 Overview: Major Depressive Disorder, Single Episode, Mild Degree Mild major depression Hypertension Essential Primary 03/06/2016 Overview: Benign Essential Hypertension Essential hypertension, benign Small Intestine Crohn's Disease 02/07/2010 Immunizations Name Administration Dates Next Due HepB Adult 11/26/2006,03/22/2006,10/15/2003 Influenza TIV (IM) 06/05/2011,05/16/2010 Influenza, Unspecified 05/18/2016,06/05/2011,06/2010 SARS-COV-2 (COVID-19) - PFIZ ER (12 years or older) 06/06/2021,11/05/2020,10/10/2020 SARS-COV-2 (COVID-19) - PFIZ ER BIVALENT TS(12 YEARS OR OLDER) 04/17/2022 Td (Adult), adsorbed 10/15/2003 Tdap 04/11/2013,06/05/2011 influenza vaccine quad (FLUZONE/FLUARIX) (6 months and older)(PF) 06/06/2021,05/10/2020,08/28/2019,2017 Social History Tobacco Use Types Packs/Day Years Used Date Smoking Tobacco: Never Smokeless Tobacco: Never Chew Tobacco Cessation:Counseling Given: Not Answered Alcohol Use Standard Drinks/Week Comments Yes 3 (1 standard drink = 0.6 oz pur e alcohol) 2-3 times weekly: 1 glass wine [employer] Answer Date Recorded In the past 12 months has [employer], oil, or water [employer] threatened to shut off services in your [...] friends or relatives? Patient declined 08/29/2020 Attends Latter Day Services Not on file 08/29 Active Member [...] Answer Date Recorded PHQ-2 Score 1 04/17/2022 [facility] - Occupational Stress [...] your living situation today? [facility] 07/01/2023 Education Answer Date Recorded What is the highest level of school you have completed or the highest degree you have received? Master's degree (e.g., MA, MS, [employer], MEd, OUTSIDE SALESMAN, JENNIFER) 08/25/2019 Sex and Gender Information Value Date Recorded Sex Assigned at Female 11/05/2021 3:27 PM CDT Gender Identity Female 06/02/2017 8:15 AM CUTTING TABLE OPERATOR Sexual Orientation Straight 06/02/2017 8: 15 AM CUTTING TABLE OPERATOR Last Filed Vital Signs Vital Sign Reading Time Taken Comments Blood Pressure 117/84 04/17/2022 8:13 AM CDT Pulse 84 04/17/2022 8:13 AM CDT Temperature 37 ??C (98.6 ??F) 04/17/2022 8:13 AM CDT Respiratory Rate 15 11/29/2018 11:17 PM CDT Oxygen Saturation 99% 05/10/2020 8:24 AM CUTTING TABLE OPERATOR Inhaled Oxygen Concentration - - Weight 126 kg (277 lb 9 oz) 04/17/2022 8:13 AM C DT Height 169.9 cm (5' 6.89) 08/25/2021 10:[address] Body Mass Index 43.62 08/25/2021 10:04 AM CUTTING TABLE OPERATOR Plan of Treatment Not on file Care Teams Debit Agent Relationship Specialty Start Date End Date Elsewhere, Pcp PCP - General Internal Medicine 07/13/22
--- OUTSIDE RECORDS SUMMARY | 2023-08-03 19:06 | XMS_ITS | Encounter Summary ---
Author Name Unknown Organization [facility] Address [address] [place] [address] Care Team Providers Care Chief Medical Director Name Role Phone Elsewhere, Pcp Primary Care Provider Unavailabl e Reason for Referral * Outpatient (Routine) - Authorized Specialty Diagnoses / Procedures Referred By Contac t Referred To Contact Dermatology Bri Garcia M.D. [address] [place] [phone] [facility] Referral ID Status Reason Start Date Expiration Date V isits Requested Visits Authorized [id number] Authorized 07/02/2023 07/01/2026 1 1 GRATION JUDGE Reason for Visit * Appointment Request (Routine) - Closed Specialty Diagnoses / Procedures Referred By Contac t Referred To Contact Dermatology Diagnoses Alopecia Referral ID Status Reason Start Date Expiration Date Visits Re quested Visits Authorized [id number] Closed 04/30/2023 04/29/2024 1 1 Encounter Details Date Type Department Care Team (Late st Contact Info) Description 07/02/2023 11:00 AM IMMIGRATION JUDGE Office Visit Department of Dermatology in [place], [place] [address] [place] [phone] Adam Ortiz M.D. [address] [place] [phone] Alopecia (Primary Dx) Discharge Disposition: Home or Self Care Social History Tobacco Use Types Packs/Day Years Used Date Smoking Tobacco: Never Smokeless Tobacco: Never Chew Alcohol Use Standard Drinks/Week Comments Yes 3 (1 standard drink = 0.6 oz pur e alcohol) 2-3 times weekly: 1 glass wine [facility] Utilities Answer Date Recorded In the past 12 months has th e electric, gas, oil, or water company threatened to shut off services in your [...] friends or relatives? Patient declined 08/29/2020 Attends Anabaptism Services Not on file 08/29 Active Member [...] Answer Date Recorded PHQ-2 Score 1 04/17/2022 [facility] Answer Date Recorded [...] Date Recorded Dental: Regular Dentist Yes 07/02/20 22 Employment Answer Date Recorded Employment status Employed and actively working without restrictions 07/01/2023 Housing Stability Answer Date Recorded What is your living situation today? I have a [facility] place to live 07/01/2023 Education Answer Date Recorded What is the highest level of school you have completed or the highest degree you have received? Master's degree (e.g., MA, MS, [employer], MEd, LEASING PROPERTY MANAGER, JENNIFER) 08/25/2019 Sex and Gender Information Value Date Recorded Sex Assigned at Female 11/05/2021 3:27 PM CDT Gender Identity Female 06/02/2017 8:15 AM IMMIGRATION JUDGE Sexual Orientation Straight 06/02/2017 8: 15 AM IMMIGRATION JUDGE documented as of this encounter Consult Notes * Adam Ortiz M.D. - 07/02/2023 11:00 AM CST CORRESPONDENCE: Correspondence to: Adam Ortiz MD Supervised by: Dr. Garcia CHIEF COMPLAINT / REASON FOR VISIT Alopecia HISTORY OF PRESENT ILLNESS Ms. Cecelia Gu is a 43 y.o. female who presents today for alopecia follow up. Shewas last seen by Dr. Iram Mahajan 09/2022 for this concern as well. Please see her note for additional history. Hair loss began shortly after starting lisinopril for hypertension in 2008 with progressive thinning of the hair on the vertex and frontal scalp without associated scalp pain, burning sensation, scale, or papules. No other hair loss including eyebrows and eyelashes. Has a history of well-controlled hypothyroidism on Synthroid. Not currently trying to get . 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 She was started on 1.25 mg of oral minoxidil with plan to consider OCPs or spironolactone in the future. Says she has been tolerating the oral minoxidil well, though wonders if we could increase the dose.Would prefer to avoid adding other medications for now if possible. Allergies Allergen Reactions Lisinopril GI intolerance Other reaction(s): GI Upset REVIEW OF SYSTEMS The patient feels well. Denies any weight loss, fevers or recent changes in her state of health. PHYSICAL EXAM General: Awake, alert, in no acute distress, and with appropriate affect. Eyes: No scleral injection or icterus. No eyelid abnormalities. Skin: I have examined the scalp, face, neck -Widened midline part and hair loss predominantly over the frontal and vertex scalp. No overlying scalp rash, no cicatrix. ASSESSMENT / PLAN #1 Female pattern hair loss I agree with this diagnosis. She has been doing well with oral minoxidil 1.25 mg daily. Reviewed wecould increase to a dose of 2.5 mg and that I do not typically go above this dose in females. We could also consider trying an anti- androgenetic medication such as spironolactone, finasteride, or dutasteride. Other options include light-based treatments and PRP injections for refractory hair loss. Reviewed relevant side effects for oral minoxidil which she is aware of including hypertrichosis, low blood pressure, and leg swelling. She would like to increase to 2.5 mg daily, an order for this was placed. All questions answered. PATIENT EDUCATION Ready to learn. No apparent learning barriers were identified. Learning preferences include listening. Explained diagnosis and treatment plan; patient/guardian of patient expressed understanding of the content. GRATION JUDGE Associated attestation - Bri Garcia M.D. - 07/15/2023 4:47 PM IMMIGRATION JUDGE I saw and evaluated the patient, participating in the burk portions of the service. I reviewed the resident/fellow???s note. I agree with the resident/fellow???s findings and plan. documented in this encounter Plan of Treatment Scheduled Referrals Name Type Priority Associated Diagnoses Order Schedule Dermatology office visit (clinic) Outpatient Referral Routine Expected: 03/02/2024 (Approximate), Expires: 09/30/2024 documented as of this encounter Visit Diagnoses Diagnosis Alopecia- Primary documented in this encounter Additional Health Concerns Assessment Noted Time PHQ-9 Depression Total Score: 3 04/17/20 22 8:24 AM CDT documented as of this encounter Care Teams Chief Medical Director Relationship Specialty Start Date End Date Elsewhere, Pcp PCP - General Internal Medicine 07/13/22 documented as of this encounter
--- OUTSIDE RECORDS SUMMARY | 2023-08-03 19:06 | XMS_ITS ---
Author Name Unknown Organization [facility] Address [address] [place] [address] Care Team Providers Care Pallet Assembler Name Role Phone Unavailable Unavailable Unavailable Surgery Details Not on file Complications Check Surgery Details section. Procedure Estimated Blood Loss Check Surgery Details section. Procedure Findings Check Surgery Details section. Procedure Specimens Taken Check Surgery Details section.
--- OUTSIDE RECORDS SUMMARY | 2023-08-03 19:07 | XMS_ITS | Encounter Summary ---
Author Name Unknown Organization [facility] Address [address] [place] [address] Care Team Providers Care Manager Payment Name Role Phone Elsewhere, Pcp Primary Care Provider Unavailabl e Reason for Visit * Reason Onset Date Comments Referral Request 08/24/2022 Dermatology [facility] Encounter Details Date Type Department Care Team (Latest Contact Info) Description 08/24/2022 Clinical Communication Department of Family Medicine, [facility], in [place], [place] [address] [place] [phone] Tanya Gonzales D.O. [address] [place] [phone] Referral Request (Dermatology [place]) Social History Tobacco Use Types Packs/Day Years Used Date Smoking Tobacco: Never Smokeless Tobacco: Never Chew Alcohol Use Standard Drinks/Week Comments Yes 3 (1 standard drink = 0.6 oz pur e alcohol) 2-3 times weekly: 1 glass wine Humiliation, Afraid, Rape, and Kick questionnair e [...] friends or relatives? Patient declined 08/29/2020 Attends Jewish Services Not on file 08/29 Active Member [...] Answer Date Recorded PHQ-2 Score 1 04/17/2022 [facility] of Occupat ional Health - Occupational Stress [...] exercise (like a brisk walk)? 3 days 08/25/2019 On average, how many minutes do you engage in exercise at this level? 30 min 08/25/2019 Hunger Vital Sign Answer Date Recorded Within the past 12 months, y ou worried that your food would run out before you got the money to buy more. Never true 08/25/19 20 Within the past 12 months, t he food you bought just didn't last and you didn't have money to get more. Never true 08/25/2019 PRAPARE - Transportation Answer Date Re corded In the past 12 months, has l ack of transportation kept you from medical appointments or from getting medications? No 08/06 In the past 12 months, has l ack of transportation kept you from meetings, work, or from getting things needed for daily living? No 08/25/2019 Depression Answer Date Recor ded PHQ-9 Total Score (max 27) 3 04/17 Nutrition Answer Date Recorded Nutrition: EVOO Fat Source Yes 08/29 On average, how many serving s of fruits and vegetables do you eat per day (serving size is equal to 1 cup or approximately the size of a tennis ball)? 2-3 08/29/2020 Dental Answer Date Recorded Dental: Regular Dentist Yes 07/02/20 Education Answer Date Recorded What is the highest level of school you have completed or the highest degree you have received? Master's degree (e.g., MA, MS, Eagle, MEd, JOB ORDER CLERK, JENNIFER) 08/25/2019 Sex and Gender Information Value Date Recorded Sex Assigned at Female 11/05/2021 3:27 PM CDT Gender Identity Female 06/02/2017 8:15 AM RAND BUTTER Sexual Orientation Straight 06/02/2017 8: 15 AM RAND BUTTER documented as of this encounter Plan of Treatment Not on file documented as of this encounter Visit Diagnoses Not on filedocumented in this encounter Additional Health Concerns Infection Onset Date Last Indicated Resolved Time COVID19 08/24/2022 08/24/2022 09/13/2022 5:36 AM CDT Assessment Noted Time PHQ-9 Depression Total Score: 3 04/17/20 22 8:24 AM CDT documented as of this encounter Care Teams Manager Payment Relationship Specialty Start Date End Date Elsewhere, Pcp PCP - General Internal Medicine 07/13/22 documented as of this encounter
--- OUTSIDE RECORDS SUMMARY | 2023-08-03 19:07 | XMS_ITS | Encounter Summary ---
Author Name Unknown Organization [facility] Address [address] [place] [address] Care Team Providers Care Carpenter Wooden Tank Erecting Name Role Phone Elsewhere, Pcp Primary Care Provider Unavailabl e Encounter Details Date Type Department Care Team ([facility] st Contact Info) Description 03/27/2022 Orders Only RST CCM [address] [place] [phone] [facility], Provider Screening Test Laboratory Social History Tobacco Use Types Packs/Day Years [...] friends or relatives? Patient declined 08/29/2020 Attends Gnosticism Services Not on file 08/29 Active Member [...] PHQ-2 Answer Date Recorded PHQ-2 Score 1 08/25/2021 [facility] - Occupational Stress Questionnaire Answer Date [...] ded PHQ-9 Total Score (max 27) 3 08/25 Nutrition Answer Date Recorded Nutrition: EVOO Fat Source Yes 08/29 On average, how many serving s of fruits and vegetables do you eat per day (serving size is equal to 1 cup or approximately the size of a tennis ball)? 2-3 08/29/2020 Dental Answer Date Recorded Dental: Regular Dentist Unknown 09/01/19 Education Answer Date Recorded What is the highest level of school you have completed or the highest degree you have received? Master's degree (e.g., MA, MS, Eagle, MEd, PROFESSIONAL TUTOR, JENNIFER) 08/25/2019 Sex and Gender Information Value Date Recorded Sex Assigned at Female 11/05/2021 3:27 PM CDT Gender Identity Female 06/02/2017 8:15 AM TACTICAL AIR CONTROL PARTY MANAGER Sexual Orientation Straight 06/02/2017 8: 15 AM TACTICAL AIR CONTROL PARTY MANAGER documented as of this encounter Plan of Treatment Not on file documented as of this encounter Visit Diagnoses Diagnosis Screening Test Laboratory documented in this encounter Additional Health Concerns Infection Onset Date Last Indicated Resolved Time COVID19 08/24/2022 08/24/2022 09/13/2022 5:36 AM CDT Assessment Noted Time PHQ-9 Depression Total Score: 3 08/25/19 22 11:35 AM TACTICAL AIR CONTROL PARTY MANAGER documented as of this encounter Care Teams Carpenter Wooden Tank Erecting Relationship Specialty Start Date End Date Elsewhere, Pcp PCP - General Internal Medicine 07/13/22 documented as of this encounter
--- OUTSIDE RECORDS SUMMARY | 2023-08-03 19:07 | XMS_ITS | Encounter Summary ---
Author Name Unknown Organization [facility] Address [address] [place] [address] Care Team Providers Care Street Car Mechanic Name Role Phone Elsewhere, Pcp Primary Care Provider Unavailabl e Reason for Visit * Reason Onset Date Comments External Lab Entry 08/24/2022 COVID POSITIV E Encounter Details Date Type Department Care Team (Latest Contact Info) Description 08/24/2022 Clinical Communication Department of Family Medicine, [facility], in [place], [place] [address] [place] [phone] Tanya Gonzales D.O. [address] [place] [phone] External Lab Entry (COVID POSITIVE) Social History Tobacco Use Types Packs/Day Years [...] friends or relatives? Patient declined 08/29/2020 Attends Rastafarian Services Not on file 08/29 Active Member [...] Answer Date Recorded PHQ-2 Score 1 04/17/2022 [facility] [place] of Occupat ional Health - Occupational Stress [...] Master's degree (e.g., MA, MS, Eagle, MEd, PUBLIC POLICY COORDINATOR, JENNIFER) 08/25/2019 Sex and Gender Information Value Date Recorded Sex Assigned at Female 11/05/2021 3:27 PM CDT Gender Identity Female 06/02/2017 8:15 AM CLINICAL ASST Sexual Orientation Straight 06/02/2017 8: 15 AM CLINICAL ASST documented as of this encounter Plan of Treatment Not on file documented as of this encounter Procedures Procedure Name Priority Date/Time Associated Diagnosis Comments EXTM HOME SARS CORONAVIRUS-2 (COVID-19) ANTIGEN, V Routine 08/24/2022 documented in this encounter Results * (ABNORMAL) EXT Home SARS Coronavirus-2 (COVID-19) Antigen, Varies (08/24/2022) EXT Home SARS-CoV-2 Antigen Presumptive Positive(A) Presumptive Negative HOME RESULTS Swab 08/24/2022 Historical Provider LAB MICROBIOLOGY - G ENERAL ORDERABLES HOME RESULTS documented in this encounter Visit Diagnoses Not on filedocumented in this encounter Additional Health Concerns Infection Onset Date Last Indicated Resolved Time COVID19 08/24/2022 08/24/2022 09/13/2022 5:36 AM CDT Assessment Noted Time PHQ-9 Depression Total Score: 3 04/17/20 22 8:24 AM CDT documented as of this encounter Care Teams Street Car Mechanic Relationship Specialty Start Date End Date Elsewhere, Pcp PCP - General Internal Medicine 07/13/22 documented as of this encounter
--- OUTSIDE RECORDS SUMMARY | 2023-08-03 19:07 | XMS_ITS | Encounter Summary ---
Author Name Unknown Organization [facility] Address [address] [place] [address] Care Team Providers Care Fish And Wildlife Warden Name Role Phone Elsewhere, Pcp Primary Care Provider Unavailabl e Reason for Visit * Outpatient (Routine) - Closed Specialty Diagnoses / Procedures Referred By Contridge t Referred To Contact Dermatology Diagnoses Alopecia Tanya Gonzales D.O. [address] [place] [phone] [facility] Referral ID Status Reason Start Date Expiration Date V isits Requested Visits Authorized [id number] Closed Specialty Services Required 03/26/2022 03/26/2023 1 1 Encounter Details Date Type Department Care Team (Latest Contact Info) Description 09/11/2022 8:00 AM PIPE AND BOILER COVERS SUPERVISOR Comprehensive Visit Department of Dermatology in [place], [place] [address] [place] [phone] Iram Rosales M.B.B.S., [place] [address] [place] [phone] Alopecia Discharge Disposition: Home or Self Care Social [...] friends or relatives? Patient declined 08/29/2020 Attends Congregation Services Not on file 08/29 Active Member [...] Answer Date Recorded PHQ-2 Score 1 04/17/2022 [facility] [place] of Occupat ional Health - Occupational Stress [...] Master's degree (e.g., MA, MS, Eagle, MEd, INTAKE ASSESSOR, JENNIFER) 08/25/2019 Sex and Gender Information Value Date Recorded Sex Assigned at Female 11/05/2021 3:27 PM CDT Gender Identity Female 06/02/2017 8:15 AM PIPE AND BOILER COVERS SUPERVISOR Sexual Orientation Straight 06/02/2017 8: 15 AM PIPE AND BOILER COVERS SUPERVISOR documented as of this encounter Consult Notes * Iram Rosales M.D. - 09/11/2022 8:00 AM CST SUBJECTIVE PATIENT DEMOGRAPHICS Clinic Number: [id number] Patient Name: Ms.. Cecelia Gu Age: 42 y.o. Sex: female Birthdate: 1980 Service: DERM REFERRED BY Tanya Gonzales D.O. [address] [place] [phone] CORRESPONDENCE TO : Iram Mahajan MD CHIEF COMPLAINT Alopecia HISTORY OF PRESENT ILLNESS Ms. Cecelia Gu is a 42 y.o. female presents today for evaluation of alopecia. In 2008, patient had some systemic problems following lisinopril initiation for hypertension. She believes that her hair loss also started around that time. Since then, she had noticed slow gradual progressing hair loss. The hair loss is significantly noticeable on the vertex and frontal scalp. She denies any pain, burning sensation or scaling over the scalp. She denies any strong family history of female pattern hair loss but reports that her mother in her 60s had noticed hair thinning. She deniesany excessive hair growth on the face or other body areas. She denies loss of eyebrows or eyelashes. She has history of hypothyroidism and follows closely with the primary care provider, currently onlevothyroxine. She also reports history of menstrual abnormalities, difficulty to conceive. She wasevaluated by outside OBGYN. Patient reports that there was no strong evidence to diagnose polycystic ovarian syndrome but it was considered. She was previously on oral contraceptive pills but currently does not take any oral contraceptive pills or spironolactone. She is currently not actively trying to get . For hair loss, she tried 5% minoxidil in the past when she was planning to get and noticed some improvement. Recently, she started using 2% minoxidil but more recently had switch to 5% minoxidil again. She had read about oral minoxidil and specifically interested in discussing about this option. OBJECTIVE PHYSICAL EXAMINATION General: Alert, pleasant, in no acute distress. Respiratory system: Breathing normally on room air. Skin: Limited examination of the scalp was performed today as per patient preference. There is no perifollicular erythema, scaling or scarring alopecia noted on the scalp. Hair thinning is noted predominantly on the frontal and vertex scalp. The hair density is less over these areas compared to occipital scalp. 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 I do not think additional biopsy is necessary. But we will request for outside biopsy slides for a second review here. I discussed treatment options that are available for treatment including topical minoxidil, oral minoxidil, oral spironolactone, oral contraceptive pills, oral finasteride among others. Patient is specifically interested in starting oral minoxidil. I discussed in detail the risk and benefits including cardiac sideeffects, black-box warning in detail with patient today. Other side effects include unwanted hair growth in other areas. After detailed discussion, patient is interested in proceeding. We will start with 1.25 mg of oral minoxidil. If she develops any side effects, she was recommended to seek immediate medical care. In the future, we could consider addition of oral contraceptive pills or spironolactone if necessary. Follow-up in 6 months PATIENT EDUCATION Ready to learn, no apparent learning barriers were identified; learning preferences include listening. Explained diagnosis and treatment plan; patient/guardian of patient expressed understanding of the content. AND BOILER COVERS SUPERVISOR documented in this encounter Plan of Treatment Not on file documented as of this encounter Visit Diagnoses Diagnosis Alopecia documented in this encounter Additional Health Concerns Infection Onset Date Last Indicated Resolved Time COVID19 08/24/2022 08/24/2022 09/13/2022 5:36 AM CDT Assessment Noted Time PHQ-9 Depression Total Score: 3 04/17/20 8:24 AM CDT documented as of this encounter Care Teams Fish And Wildlife Warden Relationship Specialty Start Date End Date Elsewhere, Pcp PCP - General Internal Medicine 07/13/22 documented as of this encounter
--- OUTSIDE RECORDS SUMMARY | 2023-08-03 19:07 | XMS_ITS | Encounter Summary ---
Author Name Unknown Organization [facility] Address [address] [place] [address] Care Team Providers Care Children'S Entertainer Name Role Phone Elsewhere, Pcp Primary Care Provider Unavailabl e Reason for Visit * Reason Onset Date Comments Pre-visit Intake 09/09/2022 Encounter Details Date Type Department Care Team (Latest Contact Info) Description 09/09/2022 8:45 AM GROUP LEADER SEMICONDUCTOR TESTING Clinical Communication Virtual Review in [place], [place] [address] [place], [place] [phone] Pre-visit Intake Social History Tobacco Use Types Packs/Day Years [...] friends or relatives? Patient declined 08/29/2020 Attends Sabianism Services Not on file 08/29 Active Member [...] Answer Date Recorded PHQ-2 Score 1 04/17/2022 [facility] of Occupat ional Health - Occupational Stress [...] Master's degree (e.g., MA, MS, Eagle, MEd, SLIME PLANT OPERATOR, JENNIFER) 08/25/2019 Sex and Gender Information Value Date Recorded Sex Assigned at Female 11/05/2021 3:27 PM CDT Gender Identity Female 06/02/2017 8:15 AM GROUP LEADER SEMICONDUCTOR TESTING Sexual Orientation Straight 06/02/2017 8: 15 AM GROUP LEADER SEMICONDUCTOR TESTING documented as of this encounter Plan of Treatment Not on file documented as of this encounter Visit Diagnoses Not on filedocumented in this encounter Additional Health Concerns Infection Onset Date Last Indicated Resolved Time COVID19 08/24/2022 08/24/2022 09/13/2022 5:36 AM CDT Assessment Noted Time PHQ-9 Depression Total Score: 3 04/17/20 22 8:24 AM CDT documented as of this encounter Care Teams Children'S Entertainer Relationship Specialty Start Date End Date Elsewhere, Pcp PCP - General Internal Medicine 07/13/22 documented as of this encounter
--- OUTSIDE RECORDS SUMMARY | 2023-08-03 19:07 | XMS_ITS | Encounter Summary ---
Author Name Unknown Organization [facility] Address [address] [place] [address] Care Team Providers Care Area Representative Name Role Phone Elsewhere, Pcp Primary Care Provider Unavailabl e Reason for Visit * Reason Onset Date Comments Pre-visit Intake 07/01/2023 Encounter Details Date Type Department Care Team (Latest Contact Info) Description 07/01/2023 7:30 AM UNISAW OPERATOR Clinical Communication Virtual Review in [place], [place] [address] [place], [place] [phone] Pre-visit Intake Social History Tobacco Use Types Packs/Day Years Used Date Smoking Tobacco: Never Smokeless Tobacco: Never Chew Tobacco Cessation:Counseling Given: Not Answered Alcohol Use Standard Drinks/Week Comments Yes 3 (1 standard drink = 0.6 oz pur e alcohol) 2-3 times weekly: 1 glass wine [facility] Utilities Answer Date Recorded In the past 12 months has [facility] [employer], gas, oil, or water [employer] threatened to shut off services in your [...] friends or relatives? Patient declined 08/29/2020 Attends Yarsanism Services Not on file 08/29 Active Member [...] Answer Date Recorded PHQ-2 Score 1 04/17/2022 [facility] [place] of Occupat ional Health - Occupational Stress [...] your living situation today? I have a [facility] place to live 07/01/2023 Education Answer Date Recorded What is the highest level of school you have completed or the highest degree you have received? Master's degree (e.g., MA, MS, Eagle, MEd, ROSIN BARREL FILLER, JENNIFER) 08/25/2019 Sex and Gender Information Value Date Recorded Sex Assigned at Female 11/05/2021 3:27 PM CDT Gender Identity Female 06/02/2017 8:15 AM UNISAW OPERATOR Sexual Orientation Straight 06/02/2017 8: 15 AM UNISAW OPERATOR documented as of this encounter Plan of Treatment Not on file documented as of this encounter Visit Diagnoses Not on filedocumented in this encounter Additional Health Concerns Assessment Noted Time PHQ-9 Depression Total Score: 3 04/17/20 22 8:24 AM CDT documented as of this encounter Care Teams Area Representative Relationship Specialty Start Date End Date Elsewhere, Pcp PCP - General Internal Medicine 07/13/22 documented as of this encounter
--- OUTSIDE RECORDS SUMMARY | 2023-08-03 19:07 | XMS_ITS | Encounter Summary ---
Author Name Unknown Organization [facility] Address [address] [place] [address] Care Team Providers Care Knitter Machine Name Role Phone Elsewhere, Pcp Primary Care Provider Unavailabl e Reason for Visit * Reason Comments Med Refill Encounter Details Date Type Department Care Team ([facility] st Contact Info) Description 04/30/2023 Refill Department of Dermatology in [place], [place] [address] [place] [phone] Ana Ray R.N. [address] [place] [phone] Med Refill Social History Tobacco Use Types Packs/Day Years [...] friends or relatives? Patient declined 08/29/2020 Attends Cheondoism Services Not on file 08/29 Active Member [...] Answer Date Recorded PHQ-2 Score 1 04/17/2022 [facility] of Occupat ional Health - Occupational Stress [...] Master's degree (e.g., MA, MS, Eagle, MEd, PLATEMAN, JENNIFER) 08/25/2019 Sex and Gender Information Value Date Recorded Sex Assigned at Female 11/05/2021 3:27 PM CDT Gender Identity Female 06/02/2017 8:15 AM BLIND STITCH MACHINE OPERATOR Sexual Orientation Straight 06/02/2017 8: 15 AM BLIND STITCH MACHINE OPERATOR documented as of this encounter Plan of Treatment Not on file documented as of this encounter Visit Diagnoses Not on filedocumented in this encounter Additional Health Concerns Assessment Noted Time PHQ-9 Depression Total Score: 3 04/17/20 22 8:24 AM CDT documented as of this encounter Care Teams Knitter Machine Relationship Specialty Start Date End Date Elsewhere, Pcp PCP - General Internal Medicine 07/13/22 documented as of this encounter
== END 2023-08-02 08:00 | disposition home or self-care (01) ==
LOC: NFLDREF 08-03 19:04
PROVIDERS: PCP Family Medicine; Referring Provider Family Medicine; Visit Provider Family Medicine
DX: E03.9 Hypothyroidism, unspecified (principal); E78.5 Hyperlipidemia, unspecified; I10 Essential (primary) hypertension; M81.0 Age-related osteoporosis without current pathological fracture; R53.83 Other fatigue; R73.03 Prediabetes; R79.89 Other specified abnormal findings of blood chemistry
CPT/HCPCS: 80053; 80061; 82306; 84443

== ENCOUNTER 2023-08-13 09:00 | Outpatient (RCR) | payer BC, SELFPAY | END 2023-10-20 09:51 | disposition home or self-care (01) | PROVIDERS: PCP Family Medicine; Visit Provider Family Medicine | DX: M25.511 Pain in right shoulder (principal); R29.3 Abnormal posture; Z51.89 Encounter for other specified aftercare | CPT/HCPCS: 97110; 97140; 97161; 97535 ==

== ENCOUNTER 2024-01-31 14:04 | Outpatient (CLI) | payer BC, SELFPAY ==
--- NOTE | 2024-01-31 14:00 | CRLHL7_ITS ---
For Patients: As a result of the Century Cures Act, medical imaging exams and procedure reports are released immediately into your electronic medical record. You may view this report before your referring provider. If you have questions, please contact your health care provider. INDICATION: check for IUD, history of fibroids, abnormal bleeding post IUD placement,. COMPARISON: none TECHNIQUE: 2D webb scale and color Doppler images were acquired of the pelvis using a transabdominal and transvaginal approach. FINDINGS: Intramural fibroid on the right measures 4.5 x 4.3 x 4.7 cm. Additional fibroid right posterior uterus measures 9.7 x 9.0 x 8.4 cm. Uterus measures 11.5 cm in length by 5.7 cm in AP diameter by 7.5 cm in transverse dimension. The myometrium has a heterogeneous echotexture. The endometrial lining measures 14 mm in composite thickness. A small amount of fluid is present within the lower uterine segment. IUD is present in the mid endometrial canal. The right ovary measures 3.6 x 3.3 x 4.0 cm in size and the left ovary is not visualized. The right ovary demonstrates normal arterial and venous blood flow on color Doppler analysis. Simple left adnexal cyst noted measuring 2.5 x 1.2 x 2.1 cm. Simple right ovarian cyst noted measuring 4.0 x 3.3 x 3.6 cm. IMPRESSION: Multiple uterine fibroids measuring up to 9.7 cm. Endometrial thickness 14 millimeters with a small amount of endometrial fluid. IUD is present in the mid endometrial canal. Simple right ovarian cyst and simple left adnexal cyst. Dictated by Kareem Man MD @ 02/01/2024 8:31:48 AM (Electronically Signed)
== END 2024-01-31 14:05 | disposition home or self-care (01) ==
LOC: US 14:04
PROVIDERS: PCP Family Medicine; Visit Provider Obstetrics & Gynecology
DX: Z30.431 Encounter for routine checking of intrauterine contraceptive device (principal); D25.9 Leiomyoma of uterus, unspecified; R93.89 Abnormal findings on diagnostic imaging of other specified body structures; T83.32XA Displacement of intrauterine contraceptive device, initial encounter
CPT/HCPCS: 76830; 76856

== ENCOUNTER 2024-09-04 07:53 | Outpatient (CLI) | payer BC, SELFPAY | END 2024-09-04 07:54 | disposition home or self-care (01) | LOC: NFLDREF 09-05 | PROVIDERS: PCP Family Medicine; Referring Provider Family Medicine; Visit Provider Family Medicine | DX: R79.89 Other specified abnormal findings of blood chemistry (principal); E78.5 Hyperlipidemia, unspecified; I10 Essential (primary) hypertension; R73.03 Prediabetes; E03.9 Hypothyroidism, unspecified; Z79.899 Other long term (current) drug therapy | CPT/HCPCS: 80053; 80061; 82306; 82607; 84443 ==

== ENCOUNTER 2024-09-13 09:27 | Outpatient (CLI) | payer BC, SELFPAY | END 2024-09-13 09:28 | disposition home or self-care (01) | LOC: NFLDREF 09-15 20:41 | PROVIDERS: PCP Family Medicine; Referring Provider Family Medicine; Visit Provider Nurse Practitioner Family | DX: R30.0 Dysuria (principal) | CPT/HCPCS: 87086 ==

== ENCOUNTER 2024-09-14 09:33 | Outpatient (CLI) | payer BC, SELFPAY ==
[2024-09-14 15:17] LABS: Chlamydia DNA Amplified* NOT DETECTED (No Detected); GC DNA Amplified* NOT DETECTED (No Detected)
== END 2024-09-14 09:34 | disposition home or self-care (01) ==
LOC: NFLDUCREF 09:34
PROVIDERS: PCP Family Medicine; Visit Provider Physician Assistant
DX: R30.0 Dysuria (principal); Z11.3 Encounter for screening for infections with a predominantly sexual mode of transmission
CPT/HCPCS: 87491; 87591

== ENCOUNTER 2024-09-18 07:36 | Outpatient (RCR) | payer BC, SELFPAY | END 2025-01-16 23:59 | disposition home or self-care (01) | PROVIDERS: PCP Family Medicine; Visit Provider Family Medicine | DX: M25.551 Pain in right hip (principal); M25.552 Pain in left hip; Z51.89 Encounter for other specified aftercare | CPT/HCPCS: 97110; 97161 ==

== ENCOUNTER 2024-12-07 08:14 | Outpatient (CLI) | payer BC, SELFPAY ==
--- NOTE | 2024-12-07 08:15 | CRLHL7_ITS ---
For Patients: As a result of the Century Cures Act, medical imaging exams and procedure reports are released immediately into your electronic medical record. You may view this report before your referring provider. If you have questions, please contact your health care provider. INDICATION: BILATERAL SCREENING MAMMOGRAM, ASYMPTOMATIC 44 Y/O FEMALE COMPARISON: 09/14/2022, 06/12/2021, 05/03/2020 TECHNIQUE: Digital mammogram in CC and MLO projections including computer-aided detection (CAD) and tomosynthesis. BREAST COMPOSITION: The breasts are almost entirely fatty. FINDINGS: No suspicious findings. ASSESSMENT: BI-RADS 2 Benign RECOMMENDATION: Annual screening mammogram. A lay language report of this examination will be provided to the patient. Dictated by: Kareem Man MD @ 12/12/2024 12:37:10 (Electronically Signed)
== END 2024-12-07 08:15 | disposition home or self-care (01) ==
LOC: MAMMO 08:14
PROVIDERS: PCP Family Medicine; Visit Provider Family Medicine
DX: Z12.31 Encounter for screening mammogram for malignant neoplasm of breast (principal)
CPT/HCPCS: 77063; 77067

== ENCOUNTER 2024-12-21 13:46 | Outpatient (CLI) | payer BC, SELFPAY ==
--- OUTSIDE RECORDS SUMMARY | 2011-06-04 06:03 | XMS_ITS | Continuity of Care Document ---
Author Organization [facility] Address [address] [address] [place] [address] Phone Care Team Providers Care Grade Setter Name Role Phone Unavailable Unavailable Unavailable Allergies, Adverse Reactions, Alerts Substance Reaction Status Criticality No Known allergies Medications Medication Instructions Dosage Effective Dates (start - stop) Status Comments mercaptopurine 50 mg Tab Take three tablets by mouth daily - Active Norvasc 5 mg Tab take 1 tablet (5MG) by oral route every day 5 MG - Active Kelnor 1/35 (28) 1 mg-35 mcg Tab take 1 tablet by oral route every day 1.00 tablet - Active Prozac 40 mg Cap Take one tablet by mouth daily pt taking generic - Active FISH OIL (unknown strength) Take two tablets by mouth daily Not Available - Active MINOXIDIL (unknown strength) Use as directed Not Available - Active multivitamin Cap Take one tablet by mouth daily - Active CALCIUM + VITAMIN D & K (unknown strength) Take one tablet by mouth daily Not Available - Active Procedures Procedure Date Routine Serum Collection Offic/outpt E&m Estab Mod-hi 2 11 Routine Serum Collection G8447 Colonoscopy Flex; W/bx 1/mx Level Iv-surg Path Gross/micro 11 Level Iv-surg Path Gross/micro 11 Routine Serum Collection Offic/outpt E&m Estab Mod-hi 2 10 Routine Serum Collection G8447 Offic/outpt E&m Estab Mod-hi 2 10 Routine Serum Collection G8447 Agile Patency Capsule Offic/outpt E&m Estab Mod-hi 2 10 G8447 Colonoscopy Flex; W/bx 1/mx Ugi Endo; W/bx 1/mx Level Iv-surg Path Gross/micro 10 Level Iv-surg Path Gross/micro 10 Level Iv-surg Path Gross/micro 10 Offic/outpt E&m Estab Mod-hi 2 10 G8447 Offic/outpt E&m Estab Mod-hi 2 10 Routine Serum Collection G8447 Offic/outpt E&m Estab Mod-hi 4 10 G8447 Offic/outpt E&m Estab Mod-hi 4 10 Immuniz Admin; 1/combo Vacc/to 10 Routine Serum Collection G8447 Influenza Vaccine H1N1 Administration H1N1 Vaccine Offic/outpt E&m Estab Mod-hi 2 10 G8447 Routine Serum Collection Routine Serum Collection Offic/outpt E&m Estab Mod-hi 2 09 Routine Serum Collection G8447 Offic/outpt E&m Estab Mod-hi 2 09 G8447 Offic/outpt E&m Estab Mod-hi 2 09 Routine Serum Collection G8447 Colonoscopy Flex; W/bx 1/mx Level Iv-surg Path Gross/micro 09 Level Iv-surg Path Gross/micro 09 Level Iv-surg Path Gross/micro 09 Offic Cons New/estab Mod-hi 60 09 Routine Serum Collection G8447 Advance Directives Directive Yes / No Effective Date File Name No Information Encounters Encounter Description Practice Location Reason(s) For Visit Diagnoses Date Provider Providers Copied on Encounter [facility], [address] [address], [place], [id number], [place] tel:[phone] [facility] No Information 1 No Information [facility], [address] [address], [place], [id number], [place] tel:[phone] [place] [address] No Information Mar-0 1 Roberto Ellis. [address] [place] [address], [address], [id number], [place]. tel:[phone] [facility], [address] [address], [place], [id number], [place] tel:[phone] [facility] Crohn's Ileitis 1 Roberto Ellis. [address] [place] [address], [address], [id number], [place]. tel:[phone] Referring Provider: Kristie Vang, [address] [place] [address], [address]. tel:[phone] Offic/outpt E&m Estab Mod-hi 2 [facility], [address] [address], [facility] [place] [id number], [place] tel:[phone] [facility] Crohns (chief complaint) Crohn's IleitisRectal Polyp/Benign 1 Roberto Ellis. [address] [place] [address], [address], [id number], [place]. tel:[phone] Referring Provider: Kristie Vang, [address] [place] [address], [address]. tel:[phone] [facility], [address] [address], [place], [id number], [place] tel:[phone] [facility] Enteritis NosPolyp-intes/r ect/stom-unc BehRectal Polyp/BenignHemo rrhoids NosAbdominal Pain, UnspecifiedDiges tive Neoplasm Nos 1 Pablo Beyer. [address] [place] [address], [id number], [place]. [phone] Referring Provider: Kristie Vang, [address] [place] [address], [address]. tel:[phone] [facility], [address] [address], [place], [place], [id number], [place] tel:[phone] [facility] Crohn's Colitis 1 Roberto Ellis. [address] [place] [address], [id number], [place]. [phone] Referring Provider: Kristie Vang, [address] [place] [address], [address]. tel:[phone] Offic/outpt E&m Estab Mod-hi 2 [facility], [address] [address], [place], [place], [id number], [place] tel:[phone] [facility] Crohns (chief complaint) Abdominal Pain, UnspecifiedAbdom inal Pain, Unspecified 0 Krystal Flowers. [address], [id number], [place]. tel:[phone] Referring Provider: Domingo Paredes, [address] [place], [address]. tel:[phone] Offic/outpt E&m Estab Mod-hi 2 [facility], [address] [address], [place], [place], [id number], [place] tel:[phone] [facility] Crohns (chief complaint) Crohn's IleitisCrohn's IleitisIrritable Bowel Syndrome 0 Roberto Ellis. [facility] [address], [id number], [place]. tel:[phone] Referring Provider: Domingo Paredes, [address], [place], [address]. tel:[phone] [facility], [address] [address], [place], [id number], [place] tel:[phone] [facility] Crohn's Ileitis 2-201 0 Roberto Ellis. [address] [facility], [facility] [address], [place], [place], [id number], [place]. tel:[phone] Referring Provider: Caleb West, [address] [facility] 500, [facility] [place], [address] . tel:[phone] Offic/outpt E&m Estab Mod-hi 2 [facility], [address] [address], [facility] [place], [id number], [place] tel:[phone] [facility] Crohns (chief complaint) Crohn's IleitisCrohn's IleitisIrritable Bowel Syndrome 0-201 0 Roberto lElis. [address] [facility], [facility] [address], [place], [place], [id number], [place]. tel:[phone] Referring Provider: Domingo Paredes, [address], [place], [address]. tel:[phone] [facility], [address] [address], [place], [place], [id number], [place] tel:[phone] [facility] Crohn's IleitisCrohn's IleitisAbdominal Pain, Unspecified 6201 0 Kody Serna. [address] [facility], [facility] [address], [place], [place], [id number], [place]. tel:[phone] Referring Provider: Domingo Paredes, [address], [place], [address]. tel:[phone] Offic/outpt E&m Estab Mod-hi 2 [facility], [address] [address], [facility] [place], [id number], [place] tel:[phone] [facility] Crohns (chief complaint) Abdominal pain (chief complaint) Crohn's Small/large IntestineAbd Pain Generalized 0 No Information Referring Provider: Domingo Paredes, [address], [place], [address]. tel:[phone] Offic/outpt E&m Estab Mod-hi 2 [facility], [address] [address], [place], [place], [id number], [place] tel:[phone] [facility] Crohns (chief complaint) RLQ PainCrohn's Ileitis 0 No Information Referring Provider: Domingo Paredes, [address], [place], [address]. tel:[phone] Offic/outpt E&m Estab Mod-hi 4 [facility], [address] [address], [place], [place], [id number], [place] tel:[phone] [facility] Crohns (chief complaint) Crohn's IleitisCrohn's Ileitis 0 Roberto Ellis. [address], [id number], [place]. tel:[phone] Referring Provider: Domingo Paredes, [address], [place], [address]. tel:[phone] Offic/outpt E&m Estab Mod-hi 4 [facility], [address] [address], [place], [place], [id number], [place] tel:[phone] [facility] Crohns (chief complaint) Crohn's IleitisCrohn's IleitisInfluenza Vaccine 0 Roberto Ellis. [address] [facility], [facility] [address], [place], [place], [id number], [place]. tel:[phone] Referring Provider: Domingo Paredes, [address], [place], [address]. tel:[phone] Offic/outpt E&m Estab Mod-hi 2 [facility], [address] [address], [place], [place], [id number], [place] tel:[phone] [facility] Abdominal pain (chief complaint) Constipati on (chief complaint) Crohn's Ileitis 5201 0 Chris PAC Katja. [address] [place] [address], [id number], [place]. tel:[phone] Referring Provider: Domingo Paredes, [address], [place], [address]. tel:[phone] [facility], [address] [address], [place], [place], [id number], [place] tel:[phone] [facility] Crohn's Ileitis 0200 9 Chris PAC Katja. [address] [place] [address], [id number], [place]. tel:[phone] Referring Provider: Domingo Paredes, [address], [place], [address]. tel:[phone] [facility], [address] [address], [place], [place], [id number], [place] tel:[phone] [facility] Crohn's Colitis 8200 9 Chris PAC Katja. [address] [place] [address], [id number], [place]. tel:[phone] Referring Provider: Domingo Paredes, [address], [place], [address]. tel:[phone] Offic/outpt E&m Estab Mod-hi 2 [facility], [address] [address], [facility] [place], [id number], [place] tel:[phone] [facility] Crohns (chief complaint) Hemorrhoid s (chief complaint) Crohn's IleitisCrohn's Ileitis 4200 9 Chris PAC Katja. [address] [place] [address], [id number], [place]. tel:[phone] Referring Provider: Domingo Paredes, [address], [place], [address]. tel:[phone] Offic/outpt E&m Estab Mod-hi 2 [facility], [address] [address], [place], [place], [id number], [place] tel:[phone] [facility] Crohns (chief complaint) Bloating (chief complaint) Crohn's IleitisCrohn's Ileitis 3200 9 Chris HAYDEE Katja. [address] [facility], [address], [id number], [place]. tel:[phone] Referring Provider: Domingo Paredes, [address] [place], [address]. tel:[phone] Offic/outpt E&m Estab Mod-hi [address] [facility], [address] [address], [place], [place], [id number], [place] tel:[phone] [facility] Colitis (chief complaint) Constipati on (chief complaint) Bloating (chief complaint) Crohn's Ileitis 9 Kody Serna. [address] [facility], [address], [id number], [place]. tel:[phone] Referring Provider: Domingo Paredes, [address], [place], [address]. tel:[phone] [facility], [address] [address], [place], [place], [id number], [place] tel:[phone] [facility] Colitis Unspecified/IBDC olitis Unspecified/IBDB enign Neoplasm Lg Bowel 9 Kody Serna. [address] [facility], [address], [id number], [place]. tel:[phone] Referring Provider: Domingo Paredes, [address], [place], [address]. tel:[phone] Offic Cons New/estab Mod-hi 60 [facility], [address] [address], [place], [place], [id number], [place] tel:[phone] [facility] Abdominal pain (chief complaint) Epigastric Pain Kody Serna. [address] [facility], [address], [place], [place], [id number], [place]. tel:[phone] Referring Provider: Domingo Grullon MD G, [address] [facility], [place], [address]. tel:[phone] Family History Family Member Type Diagnosis Age At Onset First degree family history Problem (finding) No histo ry of Crohn's Paternal grandfather Problem (finding) cancer of the e sophagus Maternal uncle Problem (finding) ulcerative colitis Maternal uncle Problem (finding) Irritable bowel disea se First degree family history Problem (finding) No Family history of No history of Colon Polyps First degree family history Problem (finding) No history of Ulcerative Colitis Paternal grandfather Problem (finding) malignant neopl asm of lung Paternal grandmother Problem (finding) cancer of colon First degree family history Problem (finding) No history of Cancer, colon Payers Payer name Insurance type Covered libertarian ID Authoriza tion(s) [employer] CI [id number] Social History Type Description Quantity Date Captured Comments Sex Female Smoking Status No Information Chief Complaint And Reason For Visit No Information Reason For Referral Reason For Referral No Information History Of Present Illness Encounter Date Complaint History Of Prese nt Illness No Information Functional Status Date Functional Assessmen t No Information Instructions Date Instruction Additional Infor mation No Information Assessments Type Assessment Date No Information Patient Care Teams Name Effective Dates (start - stop) Status Members No Information
--- NOTE | 2024-12-21 13:45 | CRLHL7_ITS ---
For Patients: As a result of the Century Cures Act, medical imaging exams and procedure reports are released immediately into your electronic medical record. You may view this report before your referring provider. If you have questions, please contact your health care provider. INDICATION: Leg pain and swelling. Recent air travel. TECHNIQUE: Ultrasound venous duplex lower right extremity. Compression venous exam was performed using webb-scale, color Doppler, and spectral Doppler imaging. COMPARISON: None. FINDINGS: Sonographic imaging demonstrates the right common femoral, deep femoral, superficial femoral, popliteal, posterior tibial and greater saphenous and the contralateral left common femoral veins to be fully compressible with normal color Doppler blood flow. Acute thrombus is present in both peroneal veins within the calf IMPRESSION: 1. Acute thrombus is present in both peroneal veins within the calf. 2. No thrombus within the posterior tibial veins, popliteal vein or more proximal leg veins Dictated by Xander Fermin MD @ 12/21/2024 3:15:24 PM (Electronically Signed)
== END 2024-12-21 13:47 | disposition home or self-care (01) ==
LOC: US 13:47
PROVIDERS: PCP Family Medicine; Visit Provider Registered Nurse
DX: M79.604 Pain in right leg (principal); I82.451 Acute embolism and thrombosis of right peroneal vein; M79.89 Other specified soft tissue disorders; R79.89 Other specified abnormal findings of blood chemistry
CPT/HCPCS: 80048; 85379; 93971

== ENCOUNTER 2024-12-27 09:56 | Outpatient (CLI) | payer BC, SELFPAY | END 2024-12-27 09:57 | disposition home or self-care (01) | LOC: NFLDREF 12-31 15:32 | PROVIDERS: PCP Family Medicine; Referring Provider Family Medicine; Visit Provider Family Medicine | DX: T45.2X1A Poisoning by vitamins, accidental (unintentional), initial encounter (principal) | CPT/HCPCS: 82306 ==

== ENCOUNTER 2025-03-22 07:35 | Outpatient (CLI) | payer BC, SELFPAY | END 2025-03-22 07:36 | disposition home or self-care (01) | LOC: NFLDREF 03-28 06:17 | PROVIDERS: PCP Family Medicine; Referring Provider Family Medicine; Visit Provider Family Medicine | DX: I10 Essential (primary) hypertension (principal); R79.89 Other specified abnormal findings of blood chemistry | CPT/HCPCS: 80053 ==